=== PATIENT | male | born 1955 | race Caucasian/White ===

== ENCOUNTER → 2016-12-16 | Outpatient (REF) | payer MEDICARE, OTHER ==
[~2016-12-16] MED LIST: /AMLO25TA PO; /OMEP10CA; ADV250INH INH; ALBU17IN INH; ALBU20IN INH; ASPI81TA45; CEFT500T; CEFT500T PO; IBUP200T2 PO; IBUP600T; LISI20TA5; LISI5TAB PO; OMEP20CA3 PO; ONETAB11 PO; PRED1TAB32 PO; PRIL20CA; SIMV10TA2 PO; WELL100T; WELL100T PO; ZOCO10TA PO; ZOLO100T; ZOLO100T PO
== END ==
LOC: M LAB REF 13:18
PROVIDERS: ATTEND Internal Medicine
DX: K70.0 Alcoholic fatty liver (principal)

== ENCOUNTER → 2017-05-31 | Outpatient (CLI) | payer MEDICARE ==
--- NOTE | 2017-05-31 13:26 | REP ---
Clinical: COPD . Comparison: 11/27/2015 . Technique: PA and lateral. Findings: The mediastinum and cardiac silhouette are normal. The lung ordaz demonstrate chronic stable changes without acute consolidation, effusion, or pneumothorax. The skeletal structures are intact and normal. Impression: 1. No acute cardiopulmonary process. Signed by Clarence Foster MD 05/31/2017 01:18 P
== END ==
LOC: M SMT 13:04
PROVIDERS: ATTEND Internal Medicine Pulmonary Disease
DX: J44.9 Chronic obstructive pulmonary disease, unspecified (principal)

== ENCOUNTER → 2017-07-08 | Outpatient (REF) | payer MEDICARE ==
[2017-07-08 12:59] LABS: INR 0.94; PROTHROMBIN TIME 12.7 SECONDS (12.4-14.5)
== END ==
LOC: M LAB REF 12:23
DX: K70.0 Alcoholic fatty liver (principal)
CPT/HCPCS: 85610

== ENCOUNTER 2018-06-26 07:51 | Day surgery (SDC) | payer MEDICARE ==
[~2018-06-26] VITALS: Ht 177.8 cm; Wt 110.2 kg
[~2018-06-26 07:51] MED LIST changes: +ALBU17IN2 INH; +AMLO5TAB6 PO; +BUPR150T3 PO; +LOSARTAN-HCTZ PO; +MULTCAP PO; +SERT-138 PO
[2018-06-26] MEDS ORDERED: NS 1,000 ML IV ONE (08:00)
[2018-06-26] MEDS ORDERED: PROPOFOL 200 MG/20 ML VIAL As Ordered ONE (08:14)
[2018-06-26] MEDS ORDERED: LIDOCAINE 2% INJ 100 MG/5 ML SDV (FOR ANES.) As Ordered ONE (08:15)
[2018-06-26] MEDS ORDERED: fentaNYL 100 MCG/2 ML INJECTION (J3010) As Ordered ONE (08:49)
[2018-06-26] MEDS ORDERED: GLYCOPYRROLATE INJ 0.2 MG/ML 2 ML VIAL As Ordered ONE (08:51)
[2018-06-26] MEDS ORDERED: ALBUTEROL SULFATE 2.5 MG/0.5 ML INH NEB SOLN INH ONE (09:00)
--- NOTE | 2018-06-26 09:22 | ROOR ---
Patient Name: Scott Hill Procedure Date: 06/26/2018 9:03 AM Date of : 1955 Age: 62 Room: [facility] Gender: Male Note Status: Finalized Procedure: Upper Endoscopy + Biopsies Indications: Heartburn, Abrams's esophagus, Follow-up of Abrams's esophagus Providers: Jared Gutiérrez MD Referring MD: Aida Merchant DO Requesting Provider: Medicines: Monitored Anesthesia Care Complications: No immediate complications. Procedure: Pre-Anesthesia Assessment: - The heart rate, respiratory rate, oxygen saturations, blood pressure, adequacy of pulmonary ventilation, and response to care were monitored throughout the procedure. The Endoscope was introduced through the mouth, and advanced to the second part of duodenum. The upper GI endoscopy was accomplished without difficulty. The patient tolerated the procedure well. Findings: The Z-line was irregular and was found 30 cm from the incisors. Multiple biopsies were obtained with cold forceps for evaluation to rule out Abrams's Esophagus randomly at the gastroesophageal junction. A medium-sized hiatal hernia was present. No other significant abnormalities were identified in a careful examination of the stomach. The exam of the duodenum was otherwise normal. Impression: - Z-line irregular, 30 cm from the incisors. - Medium-sized hiatal hernia. - Multiple biopsies were obtained at the gastroesophageal junction. - The examination was otherwise normal. Recommendation: - Patient has a contact number available for emergencies. The signs and symptoms of potential delayed complications were discussed with the patient. Return to normal activities tomorrow. Written discharge instructions were provided to the patient. - Resume previous diet. - Discharge patient to home. - Follow an antireflux regimen. - Continue present medications. - Await pathology results. - Telephone GI clinic for pathology results in 1 week. - Return to referring physician. - The findings and recommendations were discussed with the patient's family. Jared Gutiérrez MD Jared Gutiérrez MD 06/26/2018 9:22:27 AM This report has been signed electronically. Number of Addenda: 0 Note Initiated On: 06/26/2018 9:03 AM Estimated Blood Loss: Estimated blood loss: none.
[2018-06-26 09:45] VITALS: BP 127/78
== END 2018-06-26 09:52 | disposition home or self-care (01) ==
LOC: M OPP 07:51
PROVIDERS: ATTEND Internal Medicine Gastroenterology
DX: R12 Heartburn (principal); K22.70 Barrett's esophagus without dysplasia; K22.8 Other specified diseases of esophagus; K44.9 Diaphragmatic hernia without obstruction or gangrene; G47.30 Sleep apnea, unspecified; Z79.899 Other long term (current) drug therapy
CPT/HCPCS: 43239; 88305; J3010

== ENCOUNTER → 2018-10-15 | Outpatient (CLI) | payer MEDICARE ==
[~2018-10-15] MED LIST changes: -/AMLO25TA PO; +NORV2TAB PO
--- NOTE | 2018-10-15 10:11 | REP ---
Chest x-ray: Three views. History: COPD with acute lower respiratory infection. Shortness of breath and cough. Comparison chest x-ray May 31, 2017. Findings: The lungs are somewhat hyperinflated overall as before. The pleural angles are sharp. Heart size is normal. No infiltrate is seen. Pulmonary vasculature is not increased. Impression: No focal infiltrate. Mild hyperinflation. Electronically Signed by Shakeel Casas MD 10/15/2018 09:58 A
== END ==
LOC: M WUC 09:44
PROVIDERS: ATTEND Physician Assistant
DX: J44.0 Chronic obstructive pulmonary disease with (acute) lower respiratory infection (principal)

== ENCOUNTER → 2018-12-27 | Outpatient (CLI) | payer MEDICARE ==
[~2018-12-27] MED LIST changes: +OMEP20CA4 PO
--- NOTE | 2018-12-28 11:45 | REP ---
Whole body PET CT scan for single pulmonary nodule of the left lung: Comparison studies are the low-dose lung screening chest CT dated 12/19/2018. Additionally, there is a comparison PET scan dated 2010. On a low-dose lung screening CT of the chest dated 12/19/2018 there was a 9 mm lung nodule in the left upper lobe. Whole-body scanning is performed from skull base to the upper thighs. Neck and supraclavicular areas: There are no hypermetabolic foci. Chest: The 9 ml left upper lobe lung nodule on the comparison low-dose lung screening CT demonstrates no radio labeling. The the maximal standard uptake value is 0.7. There are no other hypermetabolic foci in the chest. On the comparison PET scan there were three hypermetabolic foci in the chest. These are no longer present on the current study. Abdomen, pelvis and upper thighs: There are no hypermetabolic foci. This is unchanged from the prior PET scan. Impression: There are no hypermetabolic foci. The 9 ml left upper lobe lung nodule demonstrates no radio labeling. The three foci identified in the chest on the prior PET scan are no longer present. The study is performed with 9.34 mCi of F 18 FDG. Electronically Signed by Ney Stephen MD 12/28/2018 11:37 A
== END ==
LOC: M PLARAD 14:37
PROVIDERS: ATTEND Internal Medicine Pulmonary Disease
DX: R91.1 Solitary pulmonary nodule (principal)
CPT/HCPCS: 78815; A9552

== ENCOUNTER → 2019-03-20 | Outpatient (CLI) | payer MEDICARE ==
[~2019-03-20] MED LIST changes: -ALBU17IN2 INH; +PROV108A INH
--- NOTE | 2019-03-20 13:32 | REP ---
REASON: Followup left lung nodule. All priors were reviewed. The latest prior is a low dose screening CT examination of the lungs of 12/19/2018 which showed a new left upper lobe nodule. Exam is limited without the administration of intravenous contrast. The mediastinum and pulmonary leigh are unchanged from the latest prior complete CT examination of the chest of 07/23/2014. No adenopathy has developed. There are no pleural or pericardial effusions. The imaged upper abdomen shows diffusely low density throughout the hepatic parenchyma. The imaged osseous structures show chronic spinal degenerative changes status quo. Evaluation of the lung ordaz again show a left upper lobe nodule and possibly with faint spiculations. The nodule measures approximately 9 mm. There is an incidental tiny calcified granuloma in the lingula. There are curvilinear bibasilar densities mostly pleural based and likely reflecting subsegmental atelectatic changes status quo. These have been stable since the 07/23/2014 exam as well. Scattered reticulonodular densities are again seen throughout the lung ordaz status quo, but improved when compared to 07/23/2014. IMPRESSION: 1. Left upper lobe nodule as described above. According to the revised Fleischner's Society criteria tissue sampling and/or PET CT is recommended. 2. Other chronic changes involving the lung ordaz as described above. 3. There is diffuse fatty infiltration of the liver. Electronically Signed by Omer Hill DO 03/20/2019 02:15 P
== END ==
LOC: M RAD 09:43
PROVIDERS: ATTEND Internal Medicine Pulmonary Disease
DX: R91.1 Solitary pulmonary nodule (principal); R91.8 Other nonspecific abnormal finding of lung field; K76.0 Fatty (change of) liver, not elsewhere classified

== ENCOUNTER → 2019-06-25 | Outpatient (CLI) | payer MEDICARE ==
[~2019-06-25] MED LIST changes: +OMEP1CAP73 PO; -OMEP20CA4 PO; +SIMV10TA21 PO
--- NOTE | 2019-06-25 15:39 | REP ---
CT of the chest without IV contrast for left lung nodule. Followup: Comparison is 03/20/2019. There is a nodule in the left upper lobe on image 22 today measuring 9 x 8 mm. This is unchanged in size from the prior study. There are no other lung nodules or masses. There are no infiltrates or pleural effusions. The mediastinal azygos node measures 15 mm short axis which is enlarged, however, there is a fatty hilus. This is unchanged. There is an enlarged left axillary node measuring 12 mm short axis. This is unchanged. In the absence of IV contrast the study is insensitive for hilar lymphadenopathy. There is curvilinear scarring in the left lower lobe, unchanged. Lung ordaz otherwise clear. The unenhanced thoracic aorta is unremarkable except for calcified atheroma. Cardiac size is normal. There is coronary artery calcified atheroma. This is unchanged. Upper abdomen: There is hepato steatosis, unchanged. There is no adrenal mass. The visualized areas of the pancreas and spleen are unremarkable. Impression: Right upper lobe lung nodule as described, unchanged. Enlarged mediastinal azygos node enlarged left axillary node, unchanged. No other lung nodules. No infiltrates or pleural effusions. Hepato steatosis. Small hiatal hernia. Electronically Signed by Ney Stephen MD 06/25/2019 03:31 P
== END ==
LOC: M RAD 10:46
PROVIDERS: ATTEND Internal Medicine Pulmonary Disease
DX: R91.1 Solitary pulmonary nodule (principal)

== ENCOUNTER → 2019-10-29 | Outpatient (CLI) | payer MEDICARE ==
[~2019-10-29] MED LIST changes: +CAND32TA PO
== END ==
LOC: M LABSMTC 10:53
PROVIDERS: ATTEND Anesthesiology
DX: Z01.818 Encounter for other preprocedural examination (principal); Z11.59 Encounter for screening for other viral diseases

== ENCOUNTER 2019-11-01 12:15 | Day surgery (SDC) | payer MEDICARE ==
[~2019-11-01] VITALS: Ht 180.3 cm; Wt 112.5 kg
[~2019-11-01 12:15] MED LIST changes: +BSS IRR 500ML/OMIDRIA 4ML IRR BAG (OR ONLY) (J1097 PER ML) As Ordered ONE; +CEFUROXIME 1MG/0.1ML INTRACAMERAL INJ As Ordered ONE; +DUOVISC (0.50ML VISCOAT/0.55ML PROVISC) OPHTH KIT As Ordered ONE; +MIDAZOLAM INJ 2MG/2ML VIAL (J2250 PER 1MG) As Ordered ONE; +OFLOXACIN 0.3 % (OCUFLOX) OPTH SOL 5ML OD ONE; +PHENYLEPHRINE 2.5% OPHTH SOL 2ML OD ONE; +POVIDONE-IODINE 5% OPHTH PREP SOL 30ML As Ordered ONE; +PROPARACAINE 0.5% OPHTH SOL 15ML OD ONE; +TROPICAMIDE 1% OPHTH SOLN 2ML OD ONE; +fentaNYL 100 MCG/2 ML INJECTION (J3010) As Ordered ONE
[2019-11-01 15:45] VITALS: BP 164/83
--- NOTE | 2019-11-08 23:50 | RO ---
DATE OF PROCEDURE: 11/01/2019 PREOPERATIVE DIAGNOSIS: 1. Visually significant nuclear sclerotic cataract right eye. POSTOPERATIVE DIAGNOSIS: 1. Visually significant nuclear sclerotic cataract right eye. PROCEDURE: 1. Cataract extraction with use of phacoemulsification and placement of intraocular lens, AU00T0, 20.0 D, right eye. SURGEON: Luis Alfredo Gutiérrez DO PSYCHOLOGY CLINICIAN: None. ANESTHESIA: Local with monitored anesthesia care (MAC), with Omidria (4 mL/500 mL) mixed into irrigation solution. COMPLICATIONS: None. POSTOPERATIVE CONDITION: Stable. INDICATIONS FOR SURGERY: 1. Blurred vision affecting patients activities of daily living. DESCRIPTION OF PROCEDURE: The patient was seen in the preoperative area and properly identified. The correct operative eye was identified and marked. The patient received topical anesthetic, antibiotics, and topical dilating drops. The patient was then transferred to the operating room. The correct side was re-identified, and a time-out was performed. The eye was prepped and draped in a sterile fashion. The eyelids were isolated with Tegaderm tape, and the lids were held open with an adjustable speculum. A 1.0 mm paracentesis incision was made. Intraocular preservative-free Shugarcaine was then injected into the anterior chamber. Viscoelastic was then injected into the anterior chamber through the paracentesis. Using a 2.4 mm sharp-tipped keratome, the anterior chamber was entered via a temporal clear cornea incision. A continuous curvilinear capsulorrhexis was created with Utrata forceps. Hydrodissection was performed with balanced salt solution (BSS) on a blunt cannula until the nucleus was able to rotate freely. The crystalline lens was phacoemulsified and aspirated. Irrigation/aspiration was used to remove the cortical material. Cohesive viscoelastic was placed into the capsular bag to deepen it. The implant was placed into the capsular bag and allowed to unfold. Placement was confirmed by visualizing the anterior capsulorrhexis. Irrigation/aspiration was used to remove the viscoelastic. The clear corneal incision was hydrated with BSS on a blunt cannula. The lens was well positioned. The incisions were then tested for leaks and found to be negative. Cefuroxime was injected into the anterior chamber. The eye was then palpated for appropriate pressure and adjusted accordingly with BSS. The eyelid speculum was then carefully removed. A shield was placed over the eye. The patient tolerated the procedure well and was discharged to the recovery unit in a stable condition.
== END 2019-11-01 15:50 | disposition home or self-care (01) ==
LOC: M SDC 12:15
PROVIDERS: ATTEND Ophthalmology
DX: H25.11 Age-related nuclear cataract, right eye (principal); I10 Essential (primary) hypertension; E78.5 Hyperlipidemia, unspecified; K21.9 Gastro-esophageal reflux disease without esophagitis; J44.9 Chronic obstructive pulmonary disease, unspecified; F32.9 Major depressive disorder, single episode, unspecified; G47.30 Sleep apnea, unspecified; F17.218 Nicotine dependence, cigarettes, with other nicotine-induced disorders; Z79.899 Other long term (current) drug therapy
CPT/HCPCS: 66984; J1097; J2250; J3010; V2632

== ENCOUNTER → 2020-01-09 | Outpatient (CLI) | payer MEDICARE ==
[~2020-01-09] MED LIST changes: +AMLO1TAB24 PO; -AMLO5TAB6 PO; -BSS IRR 500ML/OMIDRIA 4ML IRR BAG (OR ONLY) (J1097 PER ML) As Ordered ONE; -CEFUROXIME 1MG/0.1ML INTRACAMERAL INJ As Ordered ONE; -DUOVISC (0.50ML VISCOAT/0.55ML PROVISC) OPHTH KIT As Ordered ONE; -MIDAZOLAM INJ 2MG/2ML VIAL (J2250 PER 1MG) As Ordered ONE; -OFLOXACIN 0.3 % (OCUFLOX) OPTH SOL 5ML OD ONE; -PHENYLEPHRINE 2.5% OPHTH SOL 2ML OD ONE; -POVIDONE-IODINE 5% OPHTH PREP SOL 30ML As Ordered ONE; -PROPARACAINE 0.5% OPHTH SOL 15ML OD ONE; -TROPICAMIDE 1% OPHTH SOLN 2ML OD ONE; -fentaNYL 100 MCG/2 ML INJECTION (J3010) As Ordered ONE
--- NOTE | 2020-02-29 13:43 | REP ---
CT OF THE CHEST WITH INTRAVENOUS (IV) CONTRAST Delay in reporting results from malfunction of the hospital computer system because of malware attack. COMPARISON: 06/25/2019 and 03/20/2019. Study is performed for followup of a known left upper lobe lung nodule. FINDINGS: The left upper lobe lung nodule is again identified today on image 18 and measures 6.6 mm. This measured approximately 8 x 9 mm on the comparison studies. There is no significant interval size increase and the lesion appears slightly decreased in size today. There are no other lung nodules. There are no acute infiltrates or pleural effusions. There is chronic curvilinear scarring in the left lower lobe. This is unchanged. There is an enlarged left axillary node measuring 11 mm in diameter. This measured 12 mm previously. There is no significant size increase and this nodule may be slightly decreased in size today. There is no other axillary lymph node enlargement. There is no mediastinal lymph node enlargement. In the absence of IV contrast, the study is insensitive for hilar lymph node enlargement. The unenhanced thoracic aorta contains occasional calcified atheroma, but is otherwise unremarkable. Cardiac size is normal. There is no pericardial effusion. UPPER ABDOMEN: There is diffuse hepatosteatosis, unchanged, in the visualized portion of the liver. The visualized portions of the gallbladder, pancreas, and spleen are unremarkable. There is no adrenal nodule or mass. This is unchanged. IMPRESSION: The known left upper lobe nodule shows no interval size increase and may be slightly decreased in size. The known left axillary lymph node shows no interval size increase and may be slightly decreased in size. The chronic scarring in the left lower lobe is unchanged. There are no new lung nodules or masses. There are no acute cardiopulmonary findings. There was no interval change from the prior studies. MTDD
== END ==
LOC: M RAD 17:00
PROVIDERS: ATTEND Internal Medicine Pulmonary Disease
DX: R91.1 Solitary pulmonary nodule (principal); K76.89 Other specified diseases of liver

== ENCOUNTER → 2020-05-13 | Outpatient (CLI) | payer SELFPAY | LOC: M LABSMTC 16:56 | PROVIDERS: ATTEND Pediatrics | DX: Z11.59 Encounter for screening for other viral diseases (principal) ==

== ENCOUNTER → 2020-07-22 | Outpatient (CLI) | payer MEDICARE ==
[~2020-07-22] MED LIST changes: -BUPR150T3 PO; +BUPR150T4 PO
--- NOTE | 2020-07-23 07:12 | REP ---
INDICATION: SOLITARY PULMONARY NODULE COMPARISON: 01/09/2020, 03/20/2019 TECHNIQUE: Axial noncontrast images from the thoracic inlet to the upper abdomen with coronal and sagittal reformations. This CT examination was performed using the following dose reduction techniques: Automated exposure control, adjustment of mA and/or kv according to the patient's size, and use of iterative reconstruction technique. FINDINGS: 7 mm stable noncalcified nodule in the left upper lobe (series 201; image 22) remains essentially unchanged compared through 03/20/2019. Mild age-related chronic interstitial changes are again noted. No consolidation, new significant nodule or mass lesion. No effusion. No pneumothorax. Tracheobronchial tree is patent. No significant adenopathy. Moderate atherosclerotic changes to the thoracic aorta and coronary arteries noted without aortic aneurysm or cardiomegaly. No pericardial effusion. Limited upper abdomen demonstrates normal bilateral adrenal glands and diffuse hepatosteatosis. Small hiatal hernia noted. Musculoskeletal structures are intact. IMPRESSION: Stable 7 mm noncalcified nodule in the left upper lobe unchanged through 03/20/2019. No new mediastinal or pleuroparenchymal process appreciated. <Electronically signed by Clarence Foster > 07/23/20 [id number]
== END ==
LOC: M RAD 07:10
PROVIDERS: ATTEND Internal Medicine Pulmonary Disease
DX: R91.1 Solitary pulmonary nodule (principal); I25.10 Atherosclerotic heart disease of native coronary artery without angina pectoris; I70.0 Atherosclerosis of aorta; K76.0 Fatty (change of) liver, not elsewhere classified; K44.9 Diaphragmatic hernia without obstruction or gangrene

== ENCOUNTER 2020-11-20 17:54 | Emergency (ER) | payer MEDICARE ==
[~2020-11-20] VITALS: Ht 180.3 cm; Wt 111.4 kg
[~2020-11-20 17:54] MED LIST changes: +BUPR150T12 PO; -BUPR150T4 PO
[2020-11-20] MEDS ORDERED: FLUT1BLS5 (18:04)
[2020-11-20] MEDS ORDERED: NS 1,000 ML IV ONE (18:15)
[2020-11-20 18:45] LABS: BASO % 0.4 % (0.0-1.0); EOS # 0.1 10^3/uL (0.0-0.5); EOS % 0.6 % (0.0-3.0); HEMATOCRIT 39.4 % (42.0-52.0); HEMOGLOBIN 12.8 g/dl (13.5-17.5); LYMPH # 1.3 10^3/uL (1.5-5.0); LYMPH % 15.5 % (24.0-44.0); MEAN CORPUSCULAR HEMOGLOBIN 29.3 pg (27.0-33.0); MEAN CORPUSCULAR HGB CONC 32.5 g/dl (32.0-36.5); MEAN CORPUSCULAR VOLUME 90.2 fl (80.0-96.0); MONO # 0.6 10^3/uL (0.0-0.8); MONO % 6.7 % (2.0-8.0); NEUTROPHILS # 6.4 10^3/uL (1.5-8.5); NEUTROPHILS % 75.4 % (36.0-66.0); PLATELET COUNT, AUTOMATED 265 10^3/uL (150-450); RED BLOOD COUNT 4.37 10^6/uL (4.30-6.10); WHITE BLOOD COUNT 8.5 10^3/uL (4.0-10.0)
[2020-11-20 18:56] LABS: PROTHROMBIN TIME 13.4 SECONDS (12.5-14.3)
--- NOTE | 2020-11-20 19:00 | REPVR ---
PROCEDURE INFORMATION: Exam: CT Cervical Spine Without Contrast Exam date and time: 11/20/2020 6:30 PM Age: 65 years old Clinical indication: Injury or trauma; Fall; Blunt trauma TECHNIQUE: Imaging protocol: Computed tomography images of the cervical spine without contrast. Radiation optimization: All CT scans at this facility use at least one of these dose optimization techniques: automated exposure control; mA and/or kV adjustment per patient size (includes targeted exams where dose is matched to clinical indication); or iterative reconstruction. COMPARISON: PT PET/CT Skull/mid thigh 12/27/2018 4:03 PM FINDINGS: Bones/joints: There is mild reversal of the normal cervical lordosis. No acute fracture is identified. Discs/Spinal canal/Neural foramina: Moderate/severe degenerative changes of the cervical spine are present. There is no severe spinal canal stenosis. Multilevel neural foraminal narrowing from uncinate spurring and facet arthropathy is noted. Lungs: Lung apices are normal. Vasculature: Atherosclerotic calcifications are present at the carotid bifurcations. Soft tissues: Unremarkable. IMPRESSION: 1. No acute abnormality. 2. Chronic findings as discussed above. Electronically signed by: Chi Romo On 11/20/2020 18:59:56 PM
--- NOTE | 2020-11-20 19:01 | REPVR ---
PROCEDURE INFORMATION: Exam: CT Head Without Contrast Exam date and time: 11/20/2020 6:30 PM Age: 65 years old Clinical indication: Injury or trauma; Fall; Blunt trauma (contusions or hematomas) TECHNIQUE: Imaging protocol: Computed tomography of the head without contrast. Radiation optimization: All CT scans at this facility use at least one of these dose optimization techniques: automated exposure control; mA and/or kV adjustment per patient size (includes targeted exams where dose is matched to clinical indication); or iterative reconstruction. COMPARISON: PT PET/CT Skull/mid thigh 12/27/2018 4:03 PM FINDINGS: Brain: No acute intracranial hemorrhage, cerebral edema, or midline shift. Cerebral ventricles: No hydrocephalus. Paranasal sinuses: There is no acute sinusitis. Mastoid air cells: Visualized mastoid air cells are well aerated. Orbital cavity: Unremarkable as visualized. Bones/joints: No acute fracture. Soft tissues: Unremarkable. IMPRESSION: No acute intracranial abnormality. Electronically signed by: Chi Romo On 11/20/2020 19:00:59 PM
[2020-11-20 19:07] LABS: ALT/SGPT 98 U/L (12-78); AMYLASE 33 U/L (25-115); BILIRUBIN,DIRECT 0.1 MG/DL (0.0-0.2); BILIRUBIN,TOTAL 0.4 MG/DL (0.2-1.0); BLOOD UREA NITROGEN 17 MG/DL (7-18); CARBON DIOXIDE LEVEL 24 MEQ/L (21-32); CHLORIDE LEVEL 106 MEQ/L (98-107); CK-MB VALUE MASS 12.5 NG/ML (<3.6); CPK CREATINE PHOSPHOKINASE 625 U/L (39-308); CREATININE FOR GFR 0.71 MG/DL (0.70-1.30); GLOMERULAR FILTRATION RATE > 60.0 (>49); GLUCOSE, FASTING 82 MG/DL (70-100); LIPASE 109 U/L (73-393); POTASSIUM SERUM 3.9 MEQ/L (3.5-5.1); SODIUM LEVEL 138 MEQ/L (136-145); TOTAL PROTEIN 7.7 GM/DL (6.4-8.2); TROPONIN I < 0.02 NG/ML (< 0.10)
[2020-11-20 19:16] LABS: AMPHETAMINES LEVEL URINE NEGATIVE (NEGATIVE); BARBITURATES URINE NEGATIVE (NEGATIVE); BENZODIAZEPINES URINE NEGATIVE (NEGATIVE); CANNABINOIDS URINE NEGATIVE (NEGATIVE); COCAINE METABOLITE URINE NEGATIVE (NEGATIVE); METHADONE URINE NEGATIVE (NEGATIVE); OPIATES URINE NEGATIVE (NEGATIVE); PHENCYCLIDINE URINE NEGATIVE (NEGATIVE)
[2020-11-20] MEDS ORDERED: MORPHINE 4 MG/ML 1ML VIAL/SYRINGE (J2270) IV ONE (21:00)
--- NOTE | 2020-11-20 21:51 | ECGEPIP ---
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
--- NOTE | 2020-11-20 21:53 | REPVR ---
PROCEDURE INFORMATION: Exam: XR Chest Exam date and time: 11/20/2020 8:08 PM Age: 65 years old Clinical indication: Injury or trauma; Fall; Swelling (edema) TECHNIQUE: Imaging protocol: XR of the chest. Views: 1 view. COMPARISON: CT Chest without contrast 07/22/2020 7:27 AM FINDINGS: Lungs: Lungs are hyperinflated. No consolidation is apparent. Pleural spaces: No right pleural effusion. Mild blunting of left costophrenic sulcus which could be due to small amount of pleural fluid versus pleuroparenchymal scarring. No pneumothorax. Heart/Mediastinum: Borderline cardiomegaly. Bones/joints: No acute fractures identified however the ribs are not all well evaluated. IMPRESSION: No acute findings. Electronically signed by: Nalini Gibson On 11/20/2020 21:52:53 PM
--- NOTE | 2020-11-20 21:55 | REPVR ---
PROCEDURE INFORMATION: Exam: XR Right Ankle Exam date and time: 11/20/2020 8:08 PM Age: 65 years old Clinical indication: Pain; Ankle; Right; Additional info: Trauma TECHNIQUE: Imaging protocol: XR Right ankle. Views: 3 or more views. COMPARISON: No relevant prior studies available. FINDINGS: Bones/joints: Prominent soft tissue swelling over both the medial and lateral malleoli. No acute fracture or dislocation at the ankle. Degenerative spurring dorsum of the foot. Minimal plantar calcaneal spur. Soft tissues: Marked soft tissue swelling. IMPRESSION: Marked soft tissue swelling without ankle fracture identified. Electronically signed by: Nalini Gibson On 11/20/2020 21:54:52 PM
[2020-11-20 22:39] VITALS: BP 140/71
== END 2020-11-20 22:48 | disposition home or self-care (01) ==
LOC: M ED 17:54
DX: S93.401A Sprain of unspecified ligament of right ankle, initial encounter (principal); W13.2XXA Fall from, out of or through roof, initial encounter; Y92.009 Unspecified place in unspecified non-institutional (private) residence as the place of occurrence of the external cause; Y93.9 Activity, unspecified; Y99.9 Unspecified external cause status; F17.200 Nicotine dependence, unspecified, uncomplicated; F10.10 Alcohol abuse, uncomplicated; M50.30 Other cervical disc degeneration, unspecified cervical region; Z79.899 Other long term (current) drug therapy
CPT/HCPCS: 36415; 70450; 71045; 72125; 73610; 80048; 80076; 80307; 81001; 82077; 82150; 82550; 82553; 83605; 83690; 84484; 85025; 85610; 85730; 86850; 86900; 86901; 93005; 93041; 94760; 96361; 96374; 99285; J2270

== ENCOUNTER → 2021-01-20 | Outpatient (CLI) | payer MEDICARE ==
[~2021-01-20] MED LIST changes: +FLUT1BLS5
--- NOTE | 2021-01-20 09:56 | REP ---
INDICATION: SOLITARY PULMONARY NODULE. COMPARISON: None. TECHNIQUE: CT chest performed without the use of intravenous contrast. Sagittal and coronal reconstruction images are performed. FINDINGS: Lungs: There is no acute infiltrate. There are stable interstitial fibrotic changes scattered bilaterally. There is a stable 7 mm nodular opacity in the left upper lobe on image 21. A tiny calcified granuloma is again seen more inferiorly in the left upper lobe. Mediastinum: No gross adenopathy. Nini: No gross adenopathy. Axilla: No gross adenopathy. Pleura: No effusion. Heart: Not enlarged. Thoracic aorta: No aneurysm. Upper abdominal structures: Grossly unremarkable. There is a small hiatal hernia. Visualized osseous structures: There are mild degenerative changes of the spine without acute compression fracture. IMPRESSION: Stable exam as discussed in detail above. <Electronically signed by Ney Parish > 01/20/21 0914
== END ==
LOC: M RAD 08:52
PROVIDERS: ATTEND Internal Medicine Pulmonary Disease
DX: R91.1 Solitary pulmonary nodule (principal)

== ENCOUNTER → 2021-07-29 | Outpatient (REF) | payer MEDICARE | LOC: M LAB REF 16:23 | PROVIDERS: ATTEND Internal Medicine | DX: K70.0 Alcoholic fatty liver (principal) ==

== ENCOUNTER 2021-08-09 12:16 | Emergency (ER) | payer MEDICARE ==
[~2021-08-09 12:16] MED LIST changes: +FOLIC ACID 1 MG TAB PO SCH; +MULTIVITAMINS/MINERALS THERAP 1 TAB PO SCH
[2021-08-09] MEDS ORDERED: HYDR-3363 (12:32)
[2021-08-09] MEDS ORDERED: BUPR300T92 (12:32)
[2021-08-09] MEDS ORDERED: FISH1000 PO (12:32)
[2021-08-09] MEDS ORDERED: LORazepam 2 MG TAB PO PRN (12:45)
[2021-08-09] MEDS ORDERED: THIAMINE 100 MG TAB PO SCH ×2 (12:46→21:00)
[2021-08-09 14:08] LABS: HEMATOCRIT 42.6 % (42.0-52.0); HEMOGLOBIN 13.8 g/dl (13.5-17.5); MEAN CORPUSCULAR HEMOGLOBIN 28.9 pg (27.0-33.0); MEAN CORPUSCULAR HGB CONC 32.4 g/dl (32.0-36.5); MEAN CORPUSCULAR VOLUME 89.3 fl (80.0-96.0); PLATELET COUNT, AUTOMATED 270 10^3/uL (150-450); RED BLOOD COUNT 4.77 10^6/uL (4.30-6.10); WHITE BLOOD COUNT 8.2 10^3/uL (4.0-10.0)
[2021-08-09 14:43] LABS: ACETAMINOPHEN LEVEL < 2.0 UG/ML (10.0-30.0); ALBUMIN 3.8 GM/DL (3.2-5.2); ALT/SGPT 67 U/L (12-78); BILIRUBIN,DIRECT 0.1 MG/DL (0.0-0.2); BILIRUBIN,TOTAL 0.2 MG/DL (0.2-1.0); BLOOD UREA NITROGEN 17 MG/DL (7-18); CALCIUM LEVEL 9.8 MG/DL (8.8-10.2); CARBON DIOXIDE LEVEL 27 MEQ/L (21-32); CHLORIDE LEVEL 107 MEQ/L (98-107); ETHYL ALCOHOL (ETHANOL) < 0.003 % (0.000-0.010); GLOMERULAR FILTRATION RATE > 60.0 (>49); GLUCOSE, FASTING 121 MG/DL (70-100); POTASSIUM SERUM 3.9 MEQ/L (3.5-5.1); SALICYLATE LEVEL < 1.7 MG/DL (5.0-30.0); SODIUM LEVEL 141 MEQ/L (136-145); TOTAL PROTEIN 7.4 GM/DL (6.4-8.2)
[2021-08-09 14:48] LABS: AMPHETAMINES LEVEL URINE NEGATIVE (NEGATIVE); BARBITURATES URINE NEGATIVE (NEGATIVE); BENZODIAZEPINES URINE NEGATIVE (NEGATIVE); CANNABINOIDS URINE NEGATIVE (NEGATIVE); COCAINE METABOLITE URINE NEGATIVE (NEGATIVE); METHADONE URINE NEGATIVE (NEGATIVE); OPIATES URINE NEGATIVE (NEGATIVE); PHENCYCLIDINE URINE NEGATIVE (NEGATIVE)
[2021-08-09 16:01] VITALS: BP 138/83
[2021-08-10] MEDS ORDERED: FOLIC ACID 1 MG TAB PO SCH (09:00)
[2021-08-10] MEDS ORDERED: MULTIVITAMINS/MINERALS THERAP 1 TAB PO SCH (09:00)
== END 2021-08-09 17:26 | disposition home or self-care (01) ==
LOC: M ED 12:16
DX: F33.9 Major depressive disorder, recurrent, unspecified (principal); F41.9 Anxiety disorder, unspecified; I10 Essential (primary) hypertension; J44.9 Chronic obstructive pulmonary disease, unspecified; E78.9 Disorder of lipoprotein metabolism, unspecified; G47.33 Obstructive sleep apnea (adult) (pediatric); Z99.89 Dependence on other enabling machines and devices; Z79.899 Other long term (current) drug therapy; F17.210 Nicotine dependence, cigarettes, uncomplicated

== ENCOUNTER 2021-08-15 14:09 | Emergency (ER) | payer MEDICARE ==
[~2021-08-15] VITALS: Ht 180.3 cm; Wt 102.6 kg
[~2021-08-15 14:09] MED LIST changes: +BUPR300T92 PO; +FISH1000 PO; -FLUT1BLS5; +FLUT1BLS5 INH; -FOLIC ACID 1 MG TAB PO SCH; +HYDR-3363 PO; -MULTIVITAMINS/MINERALS THERAP 1 TAB PO SCH
[2021-08-15 15:46] LABS: HEMATOCRIT 43.1 % (42.0-52.0); HEMOGLOBIN 14.3 g/dl (13.5-17.5); MEAN CORPUSCULAR HEMOGLOBIN 28.8 pg (27.0-33.0); MEAN CORPUSCULAR HGB CONC 33.2 g/dl (32.0-36.5); MEAN CORPUSCULAR VOLUME 86.7 fl (80.0-96.0); PLATELET COUNT, AUTOMATED 262 10^3/uL (150-450); RED BLOOD COUNT 4.97 10^6/uL (4.30-6.10); WHITE BLOOD COUNT 8.8 10^3/uL (4.0-10.0)
[2021-08-15 16:17] LABS: AMPHETAMINES LEVEL URINE NEGATIVE (NEGATIVE); BARBITURATES URINE NEGATIVE (NEGATIVE); BENZODIAZEPINES URINE NEGATIVE (NEGATIVE); CANNABINOIDS URINE NEGATIVE (NEGATIVE); COCAINE METABOLITE URINE NEGATIVE (NEGATIVE); METHADONE URINE NEGATIVE (NEGATIVE); OPIATES URINE NEGATIVE (NEGATIVE); PHENCYCLIDINE URINE NEGATIVE (NEGATIVE)
[2021-08-15 16:20] LABS: ACETAMINOPHEN LEVEL < 2.0 UG/ML (10.0-30.0); ALBUMIN 4.1 GM/DL (3.2-5.2); ALT/SGPT 88 U/L (12-78); BILIRUBIN,DIRECT 0.1 MG/DL (0.0-0.2); BILIRUBIN,TOTAL 0.3 MG/DL (0.2-1.0); BLOOD UREA NITROGEN 14 MG/DL (7-18); CALCIUM LEVEL 9.8 MG/DL (8.8-10.2); CARBON DIOXIDE LEVEL 32 MEQ/L (21-32); CHLORIDE LEVEL 105 MEQ/L (98-107); CREATININE FOR GFR 0.79 MG/DL (0.70-1.30); ETHYL ALCOHOL (ETHANOL) < 0.003 % (0.000-0.010); GLOMERULAR FILTRATION RATE > 60.0 (>49); GLUCOSE, FASTING 88 MG/DL (70-100); SODIUM LEVEL 141 MEQ/L (136-145); TOTAL PROTEIN 7.9 GM/DL (6.4-8.2)
[2021-08-15] MEDS ORDERED: OMEP-173 PO (17:22)
[2021-08-15] MEDS ORDERED: ALPR1TAB3 PO (17:22)
[2021-08-15] MEDS ORDERED: MULTTAB61 PO (17:22)
[2021-08-15] MEDS ORDERED: ZOLO100T PO (17:22)
[2021-08-15] MEDS ORDERED: HOME MED LIST COMPLETE! XX SCH (18:35)
[2021-08-15] MEDS ORDERED: NICOTINE 21MG/24HR 1 EA TRANSDERMAL TD ONE (19:40)
[2021-08-15] MEDS: SALMETEROL DISKUS 50MCG INHALER (SEREVENT) INH SCH (20:00)
[2021-08-15] MEDS: amLODIPine 5 MG TAB PO SCH (20:08)
[2021-08-15] MEDS: FLUTICASONE HFA 220 MCG 12 GM INHALER (FLOVENT) INH SCH (20:16)
[2021-08-16 08:15] VITALS: BP 145/86
[2021-08-16] MEDS: amLODIPine 5 MG TAB PO SCH (08:15)
[2021-08-16 08:23] VITALS: BP 144/86
[2021-08-16] MEDS ORDERED: buPROPion **XL** TABLET 150MG (WELLBUTRIN XL) PO SCH (09:00)
[2021-08-16] MEDS ORDERED: hydroCHLOROthiazide 12.5 MG CAPSULE PO SCH (09:00)
[2021-08-16] MEDS ORDERED: CANDESARTAN 16MG TABLET PO SCH (09:00)
[2021-08-16] MEDS ORDERED: SERTRALINE 100 MG TAB PO SCH (09:00)
[2021-08-16] MEDS ORDERED: MULTIVITAMINS/MINERALS THERAP 1 TAB PO SCH (09:00)
[2021-08-16] MEDS ORDERED: OMEPRAZOLE 20MG CAP PO SCH (09:00)
[2021-08-16] MEDS ORDERED: SIMVASTATIN 10 MG TAB PO ONE (09:00)
[2021-08-16] MEDS: SALMETEROL DISKUS 50MCG INHALER (SEREVENT) INH SCH (12:00)
[2021-08-16] MEDS: FLUTICASONE HFA 220 MCG 12 GM INHALER (FLOVENT) INH SCH (12:30)
[2021-08-16] MEDS ORDERED: LORazepam 2 MG TAB PO STA (14:59)
== END 2021-08-16 16:56 ==
LOC: M ED 14:09
DX: F32.9 Major depressive disorder, single episode, unspecified (principal); I10 Essential (primary) hypertension; J44.9 Chronic obstructive pulmonary disease, unspecified; G47.33 Obstructive sleep apnea (adult) (pediatric); F17.200 Nicotine dependence, unspecified, uncomplicated; Z79.899 Other long term (current) drug therapy

== ENCOUNTER → 2022-01-28 | Outpatient (REF) | payer MEDICARE ==
[~2022-01-28] MED LIST changes: +ALPR1TAB3 PO; -CAND32TA PO; +CAND32TA2 PO; +MULTTAB61 PO; +OMEP-173 PO
== END ==
LOC: M LAB REF 12:00
PROVIDERS: ATTEND Internal Medicine
DX: K70.0 Alcoholic fatty liver (principal)

== ENCOUNTER → 2022-02-25 | Outpatient (CLI) | payer MEDICARE ==
[~2022-02-25] MED LIST changes: +ALBU6.7H6 INH; -PROV108A INH
== END ==
LOC: M RAD 09:50
PROVIDERS: ATTEND Internal Medicine Pulmonary Disease
DX: R91.1 Solitary pulmonary nodule (principal); J84.10 Pulmonary fibrosis, unspecified

== ENCOUNTER → 2022-03-12 | Outpatient (CLI) | payer MEDICARE ==
[~2022-03-12] MED LIST changes: +PROHANCE 279.3MG/ML 15ML VIAL ONE; +PROHANCE 279.3MG/ML 5ML VIAL ONE
== END ==
LOC: M PLAIMG 15:10
PROVIDERS: ATTEND Internal Medicine
DX: R51.9 Headache, unspecified (principal); R90.82 White matter disease, unspecified
CPT/HCPCS: 70553; A9576

== ENCOUNTER 2022-10-19 08:07 | Day surgery (SDC) | payer MEDICARE ==
[~2022-10-19] VITALS: Ht 180.3 cm; Wt 103.2 kg
[~2022-10-19 08:07] MED LIST changes: +ATOR1TAB21 PO; +CEFUROXIME 1MG/0.1ML INTRACAMERAL INJ As Ordered ONE; +CYCLOPENTOLATE 1% OPHTH SOLN 2ML BTL OS SCH; +CYMB60CA4 PO; +DULO1CAP5 PO; +KLON0.5T PO; +LAMO25TA4 PO; +LIDOCAINE 1% SDV 5ML VIAL As Ordered ONE; +OFLOXACIN 0.3 % (OCUFLOX) OPTH SOL 5ML OS SCH; +PHENYLEPHRINE 2.5% OPHTH SOL 2ML OS SCH; -PROHANCE 279.3MG/ML 15ML VIAL ONE; -PROHANCE 279.3MG/ML 5ML VIAL ONE; +PROPARACAINE 0.5% OPHTH SOL 15ML OS ONE; +TROPICAMIDE 1% OPHTH SOLN 15ML OS SCH
[2022-10-19] MEDS ORDERED: CEFUROXIME 1MG/0.1ML INTRACAMERAL INJ As Ordered ONE (10:02)
[2022-10-19] MEDS ORDERED: fentaNYL 100 MCG/2 ML INJECTION As Ordered ONE (10:31)
[2022-10-19] MEDS ORDERED: MIDAZOLAM INJ 2MG/2ML VIAL As Ordered ONE (10:31)
[2022-10-19 10:39] VITALS: BP 164/83
== END 2022-10-19 10:56 | disposition home or self-care (01) ==
LOC: M SDC 08:07
PROVIDERS: ATTEND Ophthalmology
DX: H25.12 Age-related nuclear cataract, left eye (principal); H21.81 Floppy iris syndrome; I10 Essential (primary) hypertension; E78.5 Hyperlipidemia, unspecified; G47.30 Sleep apnea, unspecified; F17.210 Nicotine dependence, cigarettes, uncomplicated; Z79.899 Other long term (current) drug therapy
CPT/HCPCS: 66982; J0697; J2250; J3010; V2632

== ENCOUNTER → 2023-04-08 | Outpatient (CLI) | payer MEDICARE ==
[~2023-04-08] MED LIST changes: -CEFUROXIME 1MG/0.1ML INTRACAMERAL INJ As Ordered ONE; -CYCLOPENTOLATE 1% OPHTH SOLN 2ML BTL OS SCH; -LIDOCAINE 1% SDV 5ML VIAL As Ordered ONE; -OFLOXACIN 0.3 % (OCUFLOX) OPTH SOL 5ML OS SCH; -PHENYLEPHRINE 2.5% OPHTH SOL 2ML OS SCH; -PROPARACAINE 0.5% OPHTH SOL 15ML OS ONE; -TROPICAMIDE 1% OPHTH SOLN 15ML OS SCH
== END ==
LOC: M RAD 08:36
PROVIDERS: ATTEND Internal Medicine Pulmonary Disease
DX: Z12.2 Encounter for screening for malignant neoplasm of respiratory organs (principal); F17.218 Nicotine dependence, cigarettes, with other nicotine-induced disorders; J44.9 Chronic obstructive pulmonary disease, unspecified; J84.10 Pulmonary fibrosis, unspecified

== ENCOUNTER 2023-07-20 08:28 | Inpatient (IN) | payer MEDICARE ==
[~2023-07-20] VITALS: Ht 180.3 cm; Wt 100.2 kg
[~2023-07-20 08:28] MED LIST changes: -KLON0.5T PO; +KLON0.5T8 PO
[2023-07-20 10:18] LABS: RSV AMPLIFICATION NEGATIVE (NEGATIVE)
[2023-07-20 10:38] LABS: BASO % 0.2 % (0.0-1.0); EOS % 0.2 % (0.0-3.0); HEMATOCRIT 33.2 % (42.0-52.0); HEMOGLOBIN 11.8 g/dl (13.5-17.5); LYMPH # 0.8 10^3/uL (1.5-5.0); LYMPH % 6.6 % (24.0-44.0); MEAN CORPUSCULAR HEMOGLOBIN 29.6 pg (27.0-33.0); MEAN CORPUSCULAR HGB CONC 35.5 g/dl (32.0-36.5); MEAN CORPUSCULAR VOLUME 83.4 fl (80.0-96.0); MONO # 1.1 10^3/uL (0.0-0.8); MONO % 9.4 % (2.0-8.0); NEUTROPHILS # 9.6 10^3/uL (1.5-8.5); NEUTROPHILS % 82.9 % (36.0-66.0); PLATELET COUNT, AUTOMATED 278 10^3/uL (150-450); RED BLOOD COUNT 3.98 10^6/uL (4.30-6.10); WHITE BLOOD COUNT 11.6 10^3/uL (4.0-10.0)
[2023-07-20 11:08] LABS: ALBUMIN 3.2 G/DL (3.2-5.2); ALKALINE PHOSPHATASE 108 U/L (46-116); ALT/SGPT 48 U/L (7.0-40); AST/SGOT 24 U/L (<34); BILIRUBIN,DIRECT 0.3 MG/DL (<0.4); BILIRUBIN,TOTAL 0.6 MG/DL (0.3-1.2); BLOOD UREA NITROGEN 14 MG/DL (9-23); CALCIUM LEVEL 8.6 MG/DL (8.3-10.6); CARBON DIOXIDE LEVEL 28 MMOL/L (20-31); CHLORIDE LEVEL 88 MMOL/L (98-107); GLOMERULAR FILTRATION RATE > 60.0 (>49); GLUCOSE, FASTING 103 MG/DL (74-106); POTASSIUM SERUM 3.6 MMOL/L (3.5-5.1); SODIUM LEVEL 121 MMOL/L (136-145); TOTAL PROTEIN 6.4 G/DL (5.7-8.2)
[2023-07-20 11:10] LABS: FREE T4 1.13 NG/DL (0.89-1.76); THYROID STIMULATING HORMONE 0.654 uIU/ML (0.55-4.78)
[2023-07-20] MEDS ORDERED: ALBU8.5H INH (12:43)
[2023-07-20] MEDS ORDERED: PRED10TA2 PO (12:43)
[2023-07-20] MEDS ORDERED: HOME MED LIST COMPLETE! XX SCH (12:45)
[2023-07-20] MEDS: cefTRIAXone SOD 1 GM in D5W MINI-BAG PLUS 50 ML IV ONE (13:44)
[2023-07-20] MEDS: AZITHROMYCIN 250MG TABLET PO ONE (13:44)
[2023-07-20 14:23] LABS: CREATININE,RANDOM URINE 142.8 MG/DL
[2023-07-20] MEDS ORDERED: MAALOX 30 ML SUSP *UDC PO PRN (14:25)
[2023-07-20] MEDS ORDERED: IPRATROPIUM 0.5MG/ALBUTEROL 2.5MG INH SOL UD 3ML (DUONEB) NEB PRN (14:30)
[2023-07-20] MEDS: ACETAMINOPHEN TAB 650MG DOSE (2X325MG) PO PRN (15:09)
[2023-07-20] MEDS: BENZONATATE 100MG CAPSULE PO SCH (15:10)
[2023-07-20 15:40] LABS: BLOOD UREA NITROGEN 13 MG/DL (9-23); CALCIUM LEVEL 8.2 MG/DL (8.3-10.6); CARBON DIOXIDE LEVEL 28 MMOL/L (20-31); CHLORIDE LEVEL 86 MMOL/L (98-107); CREATININE FOR GFR 0.47 MG/DL (0.70-1.30); GLOMERULAR FILTRATION RATE > 60.0 (>49); GLUCOSE, FASTING 88 MG/DL (74-106); POTASSIUM SERUM 3.6 MMOL/L (3.5-5.1); SODIUM LEVEL 120 MMOL/L (136-145)
[2023-07-20] MEDS: FOLIC ACID 1MG TAB PO SCH (15:51)
[2023-07-20] MEDS: THIAMINE 100 MG TAB PO SCH (15:52)
[2023-07-20] MEDS: MULTIVITAMINS/MINERALS THERAP 1 TAB PO SCH (15:52)
[2023-07-20 17:43] LABS: PROCALCITONIN <0.04 ng/ml
[2023-07-20 21:07] LABS: BLOOD UREA NITROGEN 11 MG/DL (9-23); CALCIUM LEVEL 8.4 MG/DL (8.3-10.6); CARBON DIOXIDE LEVEL 28 MMOL/L (20-31); CHLORIDE LEVEL 90 MMOL/L (98-107); CREATININE FOR GFR 0.48 MG/DL (0.70-1.30); GLOMERULAR FILTRATION RATE > 60.0 (>49); GLUCOSE, FASTING 76 MG/DL (74-106); POTASSIUM SERUM 3.6 MMOL/L (3.5-5.1); SODIUM LEVEL 122 MMOL/L (136-145)
[2023-07-21] MEDS: DULoxetine 30MG CAPSULE (CYMBALTA) PO SCH (00:43)
[2023-07-21] MEDS: lamoTRIgine 25MG TAB PO SCH (00:43)
[2023-07-21] MEDS: amLODIPine 5 MG TAB PO SCH ×2 (00:44→09:00)
[2023-07-21] MEDS: POTASSIUM CHLORIDE 10MEQ SR TABLET PO ONE (00:45)
[2023-07-21] MEDS: FLUTICASONE PROP 0.05% NASAL SPRAY 16 GM (FLONASE) NARES SCH (00:45)
[2023-07-21] MEDS: TOLVAPTAN 7.5 MG HALF-TAB PO ONE (00:45)
[2023-07-21] MEDS: ATORVASTATIN 20 MG TAB PO SCH (00:46)
[2023-07-21 03:14] LABS: BLOOD UREA NITROGEN 9 MG/DL (9-23); CALCIUM LEVEL 8.7 MG/DL (8.3-10.6); CARBON DIOXIDE LEVEL 29 MMOL/L (20-31); CHLORIDE LEVEL 90 MMOL/L (98-107); CREATININE FOR GFR 0.48 MG/DL (0.70-1.30); GLOMERULAR FILTRATION RATE > 60.0 (>49); GLUCOSE, FASTING 85 MG/DL (74-106); POTASSIUM SERUM 3.7 MMOL/L (3.5-5.1); SODIUM LEVEL 125 MMOL/L (136-145)
[2023-07-21 06:21] LABS: MAGNESIUM LEVEL 1.8 MG/DL (1.8-2.4)
[2023-07-21 06:55] LABS: BLOOD UREA NITROGEN 9 MG/DL (9-23); CALCIUM LEVEL 9.1 MG/DL (8.3-10.6); CARBON DIOXIDE LEVEL 27 MMOL/L (20-31); CHLORIDE LEVEL 92 MMOL/L (98-107); CREATININE FOR GFR 0.55 MG/DL (0.70-1.30); GLOMERULAR FILTRATION RATE > 60.0 (>49); GLUCOSE, FASTING 94 MG/DL (74-106); SODIUM LEVEL 127 MMOL/L (136-145)
[2023-07-21] MEDS: OMEPRAZOLE 20MG CAP PO SCH (08:18)
[2023-07-21] MEDS: buPROPion **XL** TABLET 150MG (WELLBUTRIN XL) PO SCH (08:18)
[2023-07-21] MEDS: ENOXAPARIN 40MG/0.4ML SYRINGE (J1650 PER 10MG) SC SCH (08:19)
[2023-07-21] MEDS: AZITHROMYCIN 250MG TABLET PO SCH (08:19)
[2023-07-21] MEDS ORDERED: METOPROLOL SUCC *XL* 12.5MG PER 1/2 TAB (TopROL *XL*) PO SCH (09:00)
[2023-07-21] MEDS ORDERED: PANTOPRAZOLE 40MG VIAL IV SCH (09:00)
[2023-07-21 09:28] LABS: BLOOD UREA NITROGEN 11 MG/DL (9-23); CALCIUM LEVEL 8.8 MG/DL (8.3-10.6); CARBON DIOXIDE LEVEL 27 MMOL/L (20-31); CHLORIDE LEVEL 95 MMOL/L (98-107); CREATININE FOR GFR 0.58 MG/DL (0.70-1.30); GLOMERULAR FILTRATION RATE > 60.0 (>49); GLUCOSE, FASTING 130 MG/DL (74-106); POTASSIUM SERUM 3.8 MMOL/L (3.5-5.1); SODIUM LEVEL 130 MMOL/L (136-145)
[2023-07-21 10:15] VITALS: BP 129/84; TEMP 96.8; O2SAT 90
[2023-07-21 14:00] VITALS: BP 128/85; TEMP 97.3; O2SAT 93
[2023-07-21] MEDS: cefTRIAXone SOD 2 GM in D5W MINI-BAG PLUS 50 ML IV SCH (14:27)
[2023-07-21 14:54] VITALS: O2SAT 85
[2023-07-21 15:11] VITALS: O2SAT 90
[2023-07-21 15:39] LABS: BLOOD UREA NITROGEN 16 MG/DL (9-23); CALCIUM LEVEL 8.7 MG/DL (8.3-10.6); CARBON DIOXIDE LEVEL 30 MMOL/L (20-31); CHLORIDE LEVEL 98 MMOL/L (98-107); CREATININE FOR GFR 0.78 MG/DL (0.70-1.30); GLOMERULAR FILTRATION RATE > 60.0 (>49); GLUCOSE, FASTING 130 MG/DL (74-106); POTASSIUM SERUM 3.5 MMOL/L (3.5-5.1); SODIUM LEVEL 132 MMOL/L (136-145)
[2023-07-21 19:12] VITALS: O2SAT 86
[2023-07-21 20:00] VITALS: BP 109/66; TEMP 98.1; O2SAT 91
[2023-07-22] VITALS (11 sets, daily range): BP systolic 123–152; BP diastolic 75–93; TEMP 97.2–98.2; O2SAT 85–94
[2023-07-22] MEDS: ALBUTEROL 90 MCG/ACT 8GM HFA INHALER INH PRN (00:28)
[2023-07-22 03:00] LABS: BLOOD UREA NITROGEN 22 MG/DL (9-23); CARBON DIOXIDE LEVEL 29 MMOL/L (20-31); CHLORIDE LEVEL 97 MMOL/L (98-107); CREATININE FOR GFR 0.66 MG/DL (0.70-1.30); GLOMERULAR FILTRATION RATE > 60.0 (>49); GLUCOSE, FASTING 149 MG/DL (74-106); POTASSIUM SERUM 3.7 MMOL/L (3.5-5.1); SODIUM LEVEL 132 MMOL/L (136-145)
[2023-07-22 06:12] LABS: BASO # 0.1 10^3/uL (0.0-0.2); BASO % 0.9 % (0.0-1.0); EOS # 0.1 10^3/uL (0.0-0.5); EOS % 0.6 % (0.0-3.0); HEMATOCRIT 36.8 % (42.0-52.0); HEMOGLOBIN 12.4 g/dl (13.5-17.5); LYMPH % 11.6 % (24.0-44.0); MEAN CORPUSCULAR HEMOGLOBIN 29.4 pg (27.0-33.0); MEAN CORPUSCULAR HGB CONC 33.7 g/dl (32.0-36.5); MEAN CORPUSCULAR VOLUME 87.2 fl (80.0-96.0); MONO # 1.2 10^3/uL (0.0-0.8); MONO % 14.3 % (2.0-8.0); NEUTROPHILS # 5.8 10^3/uL (1.5-8.5); NEUTROPHILS % 67.7 % (36.0-66.0); PLATELET COUNT, AUTOMATED 356 10^3/uL (150-450); RED BLOOD COUNT 4.22 10^6/uL (4.30-6.10); WHITE BLOOD COUNT 8.6 10^3/uL (4.0-10.0)
[2023-07-22 06:26] LABS: BLOOD UREA NITROGEN 19 MG/DL (9-23); CARBON DIOXIDE LEVEL 23 MMOL/L (20-31); CHLORIDE LEVEL 102 MMOL/L (98-107); CREATININE FOR GFR 0.53 MG/DL (0.70-1.30); GLOMERULAR FILTRATION RATE > 60.0 (>49); GLUCOSE, FASTING 115 MG/DL (74-106); POTASSIUM SERUM 4.3 MMOL/L (3.5-5.1); SODIUM LEVEL 133 MMOL/L (136-145)
[2023-07-22] MEDS: DOXYCYCLINE HYCLATE 100MG TABLET PO SCH (09:08)
[2023-07-22] MEDS: predniSONE 20 MG TAB PO SCH (17:16)
[2023-07-22] MEDS: BUDESONIDE 0.5 MG/2 ML INHALATION SUSPENSION NEB SCH (20:00)
[2023-07-22] MEDS: IPRATROPIUM 0.5MG/ALBUTEROL 2.5MG INH SOL UD 3ML (DUONEB) NEB SCH (20:47)
[2023-07-23] VITALS (8 sets, daily range): BP systolic 153–165; BP diastolic 81–96; TEMP 97.5–98.1; O2SAT 90–94
[2023-07-23 06:35] LABS: BLOOD UREA NITROGEN 18 MG/DL (9-23); CALCIUM LEVEL 9.4 MG/DL (8.3-10.6); CARBON DIOXIDE LEVEL 28 MMOL/L (20-31); CHLORIDE LEVEL 101 MMOL/L (98-107); CREATININE FOR GFR 0.44 MG/DL (0.70-1.30); GLOMERULAR FILTRATION RATE > 60.0 (>49); GLUCOSE, FASTING 127 MG/DL (74-106); MAGNESIUM LEVEL 1.6 MG/DL (1.8-2.4); POTASSIUM SERUM 4.6 MMOL/L (3.5-5.1); SODIUM LEVEL 135 MMOL/L (136-145)
[2023-07-23 06:47] LABS: PROCALCITONIN <0.04 ng/ml
[2023-07-23] MEDS: MAG SULF 1GM/100ML (MAG RUN) 1 GM in IV 1 EA IV ONE (08:15)
[2023-07-23] MEDS: MOM 30ML SUSPENSION UDC PO PRN (08:26)
[2023-07-23] MEDS: MUPIROCIN 2% OINT 22 GM TUBE TOP SCH (10:51)
[2023-07-23] MEDS: LORazepam 2 MG TAB PO PRN (13:55)
[2023-07-24] VITALS (7 sets, daily range): BP systolic 108–165; BP diastolic 70–96; TEMP 95.2–98.1; O2SAT 92–94
[2023-07-24 06:32] LABS: BLOOD UREA NITROGEN 18 MG/DL (9-23); CALCIUM LEVEL 9.4 MG/DL (8.3-10.6); CARBON DIOXIDE LEVEL 29 MMOL/L (20-31); CHLORIDE LEVEL 105 MMOL/L (98-107); CREATININE FOR GFR 0.48 MG/DL (0.70-1.30); GLOMERULAR FILTRATION RATE > 60.0 (>49); GLUCOSE, FASTING 98 MG/DL (74-106); MAGNESIUM LEVEL 1.8 MG/DL (1.8-2.4); POTASSIUM SERUM 4.5 MMOL/L (3.5-5.1); SODIUM LEVEL 141 MMOL/L (136-145)
[2023-07-24] MEDS: OXAZEPAM 15MG CAP PO SCH (12:02)
[2023-07-24] MEDS: BISACODYL 10MG SUPP PR PRN (15:00)
[2023-07-24] MEDS: SENOKOT S TAB PO SCH (15:00)
[2023-07-25] VITALS (7 sets, daily range): BP systolic 135–152; BP diastolic 57–104; TEMP 97.2–97.5; O2SAT 92–94
[2023-07-25 06:21] LABS: BLOOD UREA NITROGEN 20 MG/DL (9-23); CALCIUM LEVEL 9.7 MG/DL (8.3-10.6); CARBON DIOXIDE LEVEL 28 MMOL/L (20-31); CHLORIDE LEVEL 101 MMOL/L (98-107); CREATININE FOR GFR 0.48 MG/DL (0.70-1.30); GLOMERULAR FILTRATION RATE > 60.0 (>49); GLUCOSE, FASTING 116 MG/DL (74-106); MAGNESIUM LEVEL 1.7 MG/DL (1.8-2.4); POTASSIUM SERUM 4.4 MMOL/L (3.5-5.1); SODIUM LEVEL 136 MMOL/L (136-145)
[2023-07-25] MEDS: MAG SULF 1GM/100ML (MAG RUN) 1 GM in IV 1 EA IV SCH (08:24)
[2023-07-25] MEDS: predniSONE 10MG TAB PO SCH (08:25)
[2023-07-25] MEDS ORDERED: DOXY100T PO (11:43)
[2023-07-25] MEDS ORDERED: CEFD1CAP9 PO (11:43)
== END 2023-07-25 15:28 | disposition home or self-care (01) | DRG 194 ==
LOC: M ED 08:28 → M ED INP 14:25 → EEVIPCON 14:25 → M MSPAV 07-21 10:15
PROVIDERS: ADMIT Student in an Organized Health Care Education/Training Program; ATTEND Student in an Organized Health Care Education/Training Program
DX: J13 Pneumonia due to Streptococcus pneumoniae (principal); J44.0 Chronic obstructive pulmonary disease with (acute) lower respiratory infection; E22.2 Syndrome of inappropriate secretion of antidiuretic hormone; E87.1 Hypo-osmolality and hyponatremia; F10.10 Alcohol abuse, uncomplicated; I10 Essential (primary) hypertension; K21.9 Gastro-esophageal reflux disease without esophagitis; E83.42 Hypomagnesemia; Z79.899 Other long term (current) drug therapy; E78.5 Hyperlipidemia, unspecified; F32.A Depression, unspecified; F41.9 Anxiety disorder, unspecified; G47.33 Obstructive sleep apnea (adult) (pediatric); R91.1 Solitary pulmonary nodule; K44.9 Diaphragmatic hernia without obstruction or gangrene; F17.200 Nicotine dependence, unspecified, uncomplicated; Z79.52 Long term (current) use of systemic steroids; K59.00 Constipation, unspecified

== ENCOUNTER 2023-08-18 14:14 | Inpatient (IN) | payer MEDICARE ==
[~2023-08-18] VITALS: Ht 180.3 cm; Wt 103.5 kg
[~2023-08-18 14:14] MED LIST changes: +ALBU8.5H INH; +CEFD1CAP9 PO; +DOXY100T PO; +PRED10TA2 PO
[2023-08-18] MEDS ORDERED: LORazepam 2 MG TAB PO PRN ×2 (15:05→16:45)
[2023-08-18 15:19] LABS: VENOUS BASE EXCESS 0.6 (-2.0-2.0); VENOUS HCO3 24.2 MMOL/L (23.0-27.0); VENOUS O2 SATURATION 97.9 % (60.0-80.0); VENOUS PARTIAL PRESSURE CO2 35.4 mmHg (38.0-50.0); VENOUS PARTIAL PRESSURE O2 106.2 mmHg (30.0-50.0); VENOUS PH 7.452 UNITS (7.330-7.430); VENOUS TOTAL CO2 25.2 MMOL/L (24.0-28.0)
[2023-08-18 15:23] LABS: BASO % 0.4 % (0.0-1.0); EOS # 0.2 10^3/uL (0.0-0.5); EOS % 2.5 % (0.0-3.0); HEMATOCRIT 33.4 % (42.0-52.0); HEMOGLOBIN 11.7 g/dl (13.5-17.5); LYMPH # 1.6 10^3/uL (1.5-5.0); LYMPH % 19.9 % (24.0-44.0); MEAN CORPUSCULAR HEMOGLOBIN 29.5 pg (27.0-33.0); MEAN CORPUSCULAR VOLUME 84.1 fl (80.0-96.0); MONO # 0.5 10^3/uL (0.0-0.8); MONO % 6.6 % (2.0-8.0); NEUTROPHILS # 5.7 10^3/uL (1.5-8.5); NEUTROPHILS % 70.2 % (36.0-66.0); PLATELET COUNT, AUTOMATED 269 10^3/uL (150-450); RED BLOOD COUNT 3.97 10^6/uL (4.30-6.10); WHITE BLOOD COUNT 8.1 10^3/uL (4.0-10.0)
[2023-08-18 15:54] LABS: ETHYL ALCOHOL (ETHANOL) 0.005 % (0.000-0.010)
[2023-08-18 15:56] LABS: ALBUMIN 3.8 G/DL (3.2-5.2); ALKALINE PHOSPHATASE 114 U/L (46-116); ALT/SGPT 49 U/L (7.0-40); AST/SGOT 30 U/L (<34); BILIRUBIN,DIRECT 0.2 MG/DL (<0.4); BILIRUBIN,TOTAL 0.5 MG/DL (0.3-1.2); BLOOD UREA NITROGEN 13 MG/DL (9-23); CALCIUM LEVEL 9.4 MG/DL (8.3-10.6); CARBON DIOXIDE LEVEL 24 MMOL/L (20-31); CHLORIDE LEVEL 89 MMOL/L (98-107); CREATININE FOR GFR 0.45 MG/DL (0.70-1.30); GLOMERULAR FILTRATION RATE > 60.0 (>49); GLUCOSE, FASTING 91 MG/DL (74-106); MAGNESIUM LEVEL 1.7 MG/DL (1.8-2.4); POTASSIUM SERUM 4.3 MMOL/L (3.5-5.1); SODIUM LEVEL 121 MMOL/L (136-145); TOTAL PROTEIN 6.4 G/DL (5.7-8.2)
[2023-08-18 16:00] LABS: THYROID STIMULATING HORMONE 1.334 uIU/ML (0.55-4.78)
[2023-08-18] MEDS: MULTIVITAMINS/MINERALS THERAP 1 TAB PO SCH (17:00)
[2023-08-18] MEDS: THIAMINE 100 MG TAB PO SCH (17:00)
[2023-08-18] MEDS ORDERED: IPRATROPIUM 0.5MG/ALBUTEROL 2.5MG INH SOL UD 3ML (DUONEB) NEB PRN (17:00)
[2023-08-18] MEDS: FOLIC ACID 1MG TAB PO SCH (17:01)
[2023-08-18] MEDS: MAG SULF 1GM/100ML (MAG RUN) 1 GM in IV 1 EA IV ONE ×2 (17:01→18:32)
[2023-08-18 17:04] LABS: FREE T4 1.06 NG/DL (0.89-1.76)
[2023-08-18] MEDS ORDERED: AZITHROMYCIN 250MG TABLET PO SCH (17:10)
[2023-08-18] MEDS ORDERED: HOME MED LIST COMPLETE! XX SCH (17:20)
[2023-08-18] MEDS ORDERED: ALBUTEROL 90 MCG/ACT 8GM HFA INHALER INH PRN (17:25)
[2023-08-18] MEDS: predniSONE 20 MG TAB PO SCH (18:01)
[2023-08-18] MEDS: PANTOPRAZOLE 40MG VIAL IV SCH (18:02)
[2023-08-18 18:30] VITALS: BP 135/80; TEMP 98.2; O2SAT 96
[2023-08-18 18:36] VITALS: BP 135/80
[2023-08-18] MEDS: MULTIVITAMIN -ADULT INJECTION 10 ML, THIAMINE INJection 100 MG, FOLIC ACID 1 MG in NS 1... IV ONE (19:36)
[2023-08-18 20:00] VITALS: BP 149/82
[2023-08-18] MEDS: DULoxetine 30MG CAPSULE (CYMBALTA) PO SCH (20:19)
[2023-08-18] MEDS: NICOTINE 21MG/24HR 1 EA TRANSDERMAL TD SCH (20:19)
[2023-08-18] MEDS: ATORVASTATIN 20 MG TAB PO SCH (20:19)
[2023-08-18] MEDS: lamoTRIgine 25MG TAB PO SCH (20:20)
[2023-08-18] MEDS: amLODIPine 5 MG TAB PO SCH (20:25)
[2023-08-18] MEDS: ACETAMINOPHEN TAB 650MG DOSE (2X325MG) PO PRN (20:28)
[2023-08-18] MEDS: ADVAIR HFA 115/21MCG INHALER INH SCH (20:54)
[2023-08-18] MEDS: IPRATROPIUM 0.5MG/ALBUTEROL 2.5MG INH SOL UD 3ML (DUONEB) NEB SCH (20:54)
[2023-08-18 22:00] VITALS: BP 149/82; TEMP 98.1; O2SAT 92
[2023-08-18] MEDS: SODIUM CHLORIDE 1 GM TAB PO ONE (23:44)
[2023-08-19] VITALS (8 sets, daily range): BP systolic 134–153; BP diastolic 58–95; TEMP 98.1–98.2; O2SAT 90–96
[2023-08-19] MEDS: BENZONATATE 100MG CAPSULE PO PRN (01:43)
[2023-08-19 06:36] LABS: BASO % 0.2 % (0.0-1.0); EOS % 0.2 % (0.0-3.0); HEMATOCRIT 32.9 % (42.0-52.0); HEMOGLOBIN 11.5 g/dl (13.5-17.5); LYMPH # 0.7 10^3/uL (1.5-5.0); LYMPH % 15.8 % (24.0-44.0); MEAN CORPUSCULAR HEMOGLOBIN 29.2 pg (27.0-33.0); MEAN CORPUSCULAR VOLUME 83.5 fl (80.0-96.0); MONO # 0.2 10^3/uL (0.0-0.8); MONO % 4.8 % (2.0-8.0); NEUTROPHILS # 3.5 10^3/uL (1.5-8.5); NEUTROPHILS % 78.3 % (36.0-66.0); PLATELET COUNT, AUTOMATED 249 10^3/uL (150-450); RED BLOOD COUNT 3.94 10^6/uL (4.30-6.10); WHITE BLOOD COUNT 4.4 10^3/uL (4.0-10.0)
[2023-08-19 07:04] LABS: BLOOD UREA NITROGEN 8 MG/DL (9-23); CALCIUM LEVEL 8.6 MG/DL (8.3-10.6); CARBON DIOXIDE LEVEL 25 MMOL/L (20-31); CHLORIDE LEVEL 88 MMOL/L (98-107); CREATININE FOR GFR 0.36 MG/DL (0.70-1.30); GLOMERULAR FILTRATION RATE > 60.0 (>49); GLUCOSE, FASTING 135 MG/DL (74-106); POTASSIUM SERUM 4.3 MMOL/L (3.5-5.1); SODIUM LEVEL 118 MMOL/L (136-145)
[2023-08-19 07:55] LABS: CREATININE,RANDOM URINE 45.6 MG/DL
[2023-08-19] MEDS: THIAMINE 100 MG TAB PO SCH (08:50)
[2023-08-19] MEDS: FOLIC ACID 1MG TAB PO SCH (08:50)
[2023-08-19] MEDS: MULTIVITAMINS/MINERALS THERAP 1 TAB PO SCH (08:50)
[2023-08-19] MEDS: buPROPion **XL** TABLET 150MG (WELLBUTRIN XL) PO SCH (08:50)
[2023-08-19] MEDS: IBUPROFEN 400MG TAB PO ONE (08:51)
[2023-08-19] MEDS: AZITHROMYCIN 250MG TABLET PO SCH (08:51)
[2023-08-19] MEDS: TOLVAPTAN 7.5 MG HALF-TAB PO ONE (09:12)
[2023-08-19] MEDS: MUPIROCIN 2% OINT 22 GM TUBE TOP SCH (12:15)
[2023-08-19] MEDS: CHLORHEXIDINE GLUCONATE 0.12 % 15ML UDC (PERIDEX ORAL RINSE) MT SCH (12:15)
[2023-08-19] MEDS: ENOXAPARIN 40MG/0.4ML SYRINGE (J1650 PER 10MG) SC SCH (20:13)
[2023-08-19] MEDS: D5W 500ML IV ONE (20:15)
[2023-08-20] VITALS (9 sets, daily range): BP systolic 116–141; BP diastolic 71–88; TEMP 97.5–98.2; O2SAT 89–95
[2023-08-20 00:57] LABS: BLOOD UREA NITROGEN 13 MG/DL (9-23); CALCIUM LEVEL 8.7 MG/DL (8.3-10.6); CARBON DIOXIDE LEVEL 27 MMOL/L (20-31); CHLORIDE LEVEL 101 MMOL/L (98-107); CREATININE FOR GFR 0.54 MG/DL (0.70-1.30); GLOMERULAR FILTRATION RATE > 60.0 (>49); GLUCOSE, FASTING 145 MG/DL (74-106); POTASSIUM SERUM 3.8 MMOL/L (3.5-5.1); SODIUM LEVEL 133 MMOL/L (136-145)
[2023-08-20] MEDS: D5W 500 ML IV ONE (01:52)
[2023-08-20 06:49] LABS: BASO % 0.3 % (0.0-1.0); EOS # 0.1 10^3/uL (0.0-0.5); EOS % 1.1 % (0.0-3.0); HEMATOCRIT 34.4 % (42.0-52.0); HEMOGLOBIN 11.7 g/dl (13.5-17.5); LYMPH # 1.7 10^3/uL (1.5-5.0); MEAN CORPUSCULAR HEMOGLOBIN 29.3 pg (27.0-33.0); MONO # 0.7 10^3/uL (0.0-0.8); MONO % 11.5 % (2.0-8.0); NEUTROPHILS # 3.8 10^3/uL (1.5-8.5); NEUTROPHILS % 60.6 % (36.0-66.0); PLATELET COUNT, AUTOMATED 247 10^3/uL (150-450); WHITE BLOOD COUNT 6.3 10^3/uL (4.0-10.0)
[2023-08-20 07:20] LABS: BLOOD UREA NITROGEN 14 MG/DL (9-23); CALCIUM LEVEL 7.6 MG/DL (8.3-10.6); CARBON DIOXIDE LEVEL 28 MMOL/L (20-31); CHLORIDE LEVEL 101 MMOL/L (98-107); CREATININE FOR GFR 0.41 MG/DL (0.70-1.30); GLOMERULAR FILTRATION RATE > 60.0 (>49); GLUCOSE, FASTING 100 MG/DL (74-106); MAGNESIUM LEVEL 2.1 MG/DL (1.8-2.4); POTASSIUM SERUM 3.8 MMOL/L (3.5-5.1); SODIUM LEVEL 134 MMOL/L (136-145)
[2023-08-20] MEDS: DESMOPRESSIN 4 MCG/ML INJ VIAL/AMP IV ONE ×2 (09:20→16:19)
[2023-08-20] MEDS: D5W 1,000 ML IV SCH (09:20)
[2023-08-20] MEDS ORDERED: LEVALBUTEROL 1.25MG 0.5ML CONCENTRATE NEB INH PRN (09:35)
[2023-08-20] MEDS: METOPROLOL TART 25 MG TABLET PO ONE (09:44)
[2023-08-20] MEDS ORDERED: GLUCOSE 4GM CHEW TABLET PO PRN (14:50)
[2023-08-20] MEDS ORDERED: GLUCAGON INJ 1MG VIAL SC PRN (14:50)
[2023-08-20] MEDS ORDERED: DEXTROSE 50% 50ML SYRINGE IV PRN (14:50)
[2023-08-20] MEDS: LEVALBUTEROL 1.25MG 0.5ML CONCENTRATE NEB INH SCH (15:23)
[2023-08-20] MEDS: METOPROLOL TART 25 MG TABLET PO SCH (17:26)
[2023-08-20] MEDS: INSULIN LISPRO (NovoLOG) PER UNIT SC SCH ×2 (17:27→20:21)
[2023-08-20] MEDS ORDERED: INSULIN LISPRO (NovoLOG) PER UNIT SC SCH (18:00)
[2023-08-20] MEDS ORDERED: NICOTINE POLACRILEX 2 MG GUM PO PRN (20:10)
[2023-08-21] VITALS (10 sets, daily range): BP systolic 122–144; BP diastolic 78–97; TEMP 97.5–98.2; O2SAT 91–95
[2023-08-21 06:55] LABS: BASO % 0.4 % (0.0-1.0); EOS # 0.1 10^3/uL (0.0-0.5); EOS % 1.3 % (0.0-3.0); HEMOGLOBIN 11.2 g/dl (13.5-17.5); LYMPH # 2.8 10^3/uL (1.5-5.0); MEAN CORPUSCULAR HEMOGLOBIN 28.9 pg (27.0-33.0); MEAN CORPUSCULAR HGB CONC 32.9 g/dl (32.0-36.5); MEAN CORPUSCULAR VOLUME 87.6 fl (80.0-96.0); MONO # 0.7 10^3/uL (0.0-0.8); MONO % 7.3 % (2.0-8.0); NEUTROPHILS # 5.3 10^3/uL (1.5-8.5); NEUTROPHILS % 59.7 % (36.0-66.0); PLATELET COUNT, AUTOMATED 261 10^3/uL (150-450); RED BLOOD COUNT 3.88 10^6/uL (4.30-6.10); WHITE BLOOD COUNT 8.9 10^3/uL (4.0-10.0)
[2023-08-21 07:20] LABS: BLOOD UREA NITROGEN 16 MG/DL (9-23); CALCIUM LEVEL 9.2 MG/DL (8.3-10.6); CARBON DIOXIDE LEVEL 29 MMOL/L (20-31); CHLORIDE LEVEL 96 MMOL/L (98-107); CREATININE FOR GFR 0.49 MG/DL (0.70-1.30); GLOMERULAR FILTRATION RATE > 60.0 (>49); GLUCOSE, FASTING 105 MG/DL (74-106); MAGNESIUM LEVEL 1.7 MG/DL (1.8-2.4); POTASSIUM SERUM 4.2 MMOL/L (3.5-5.1); SODIUM LEVEL 130 MMOL/L (136-145)
[2023-08-21] MEDS: MAG SULF 1GM/100ML (MAG RUN) 1 GM in IV 1 EA IV ONE (08:34)
[2023-08-21] MEDS ORDERED: ELIQ5TAB PO (10:19)
[2023-08-21] MEDS: APIXABAN 5 MG TAB (ELIQUIS) PO SCH (11:22)
[2023-08-22] VITALS (8 sets, daily range): BP systolic 143–155; BP diastolic 71–99; TEMP 97.7–98.1; O2SAT 91–94
[2023-08-22 06:24] LABS: BASO % 0.3 % (0.0-1.0); EOS # 0.1 10^3/uL (0.0-0.5); EOS % 0.7 % (0.0-3.0); HEMATOCRIT 34.4 % (42.0-52.0); HEMOGLOBIN 11.3 g/dl (13.5-17.5); LYMPH % 30.1 % (24.0-44.0); MEAN CORPUSCULAR HEMOGLOBIN 28.8 pg (27.0-33.0); MEAN CORPUSCULAR HGB CONC 32.8 g/dl (32.0-36.5); MEAN CORPUSCULAR VOLUME 87.5 fl (80.0-96.0); MONO # 0.7 10^3/uL (0.0-0.8); NEUTROPHILS % 61.4 % (36.0-66.0); PLATELET COUNT, AUTOMATED 275 10^3/uL (150-450); RED BLOOD COUNT 3.93 10^6/uL (4.30-6.10); WHITE BLOOD COUNT 9.8 10^3/uL (4.0-10.0)
[2023-08-22 06:59] LABS: BLOOD UREA NITROGEN 19 MG/DL (9-23); CALCIUM LEVEL 9.1 MG/DL (8.3-10.6); CARBON DIOXIDE LEVEL 28 MMOL/L (20-31); CHLORIDE LEVEL 96 MMOL/L (98-107); CREATININE FOR GFR 0.47 MG/DL (0.70-1.30); GLOMERULAR FILTRATION RATE > 60.0 (>49); GLUCOSE, FASTING 104 MG/DL (74-106); MAGNESIUM LEVEL 1.8 MG/DL (1.8-2.4); POTASSIUM SERUM 4.3 MMOL/L (3.5-5.1); SODIUM LEVEL 129 MMOL/L (136-145)
[2023-08-22] MEDS: amLODIPine 5 MG TAB PO SCH (08:39)
[2023-08-22] MEDS: TOLVAPTAN 7.5 MG HALF-TAB PO ONE (13:35)
[2023-08-22] MEDS: METOPROLOL TART 25 MG TABLET PO SCH (20:04)
[2023-08-23 02:00] VITALS: BP 144/93; TEMP 98.2; O2SAT 93
[2023-08-23 06:00] VITALS: BP_SYST 145; BP_DIAS 91; BP_DIAS 93; TEMP 97.9; O2SAT 93
[2023-08-23 06:09] VITALS: O2SAT 93
[2023-08-23 06:46] LABS: BASO % 0.3 % (0.0-1.0); EOS # 0.1 10^3/uL (0.0-0.5); EOS % 0.4 % (0.0-3.0); HEMOGLOBIN 11.4 g/dl (13.5-17.5); LYMPH # 1.8 10^3/uL (1.5-5.0); LYMPH % 15.8 % (24.0-44.0); MEAN CORPUSCULAR HEMOGLOBIN 28.8 pg (27.0-33.0); MEAN CORPUSCULAR HGB CONC 32.6 g/dl (32.0-36.5); MEAN CORPUSCULAR VOLUME 88.4 fl (80.0-96.0); MONO # 1.1 10^3/uL (0.0-0.8); MONO % 9.8 % (2.0-8.0); NEUTROPHILS # 8.3 10^3/uL (1.5-8.5); NEUTROPHILS % 73.2 % (36.0-66.0); PLATELET COUNT, AUTOMATED 268 10^3/uL (150-450); RED BLOOD COUNT 3.96 10^6/uL (4.30-6.10); WHITE BLOOD COUNT 11.4 10^3/uL (4.0-10.0)
[2023-08-23 07:16] LABS: BLOOD UREA NITROGEN 15 MG/DL (9-23); CALCIUM LEVEL 9.2 MG/DL (8.3-10.6); CARBON DIOXIDE LEVEL 29 MMOL/L (20-31); CHLORIDE LEVEL 97 MMOL/L (98-107); CREATININE FOR GFR 0.51 MG/DL (0.70-1.30); GLOMERULAR FILTRATION RATE > 60.0 (>49); GLUCOSE, FASTING 108 MG/DL (74-106); MAGNESIUM LEVEL 1.6 MG/DL (1.8-2.4); POTASSIUM SERUM 4.2 MMOL/L (3.5-5.1); SODIUM LEVEL 131 MMOL/L (136-145)
[2023-08-23] MEDS: MAG SULF 1GM/100ML (MAG RUN) 1 GM in IV 1 EA IV SCH (08:13)
[2023-08-23 08:16] VITALS: BP 132/81
[2023-08-23] MEDS: FUROSEMIDE 10MG PER 1/2 TABLET PO SCH (09:53)
[2023-08-23] MEDS: SODIUM CHLORIDE 1 GM TAB PO SCH (09:53)
[2023-08-23 09:57] VITALS: BP 126/70; TEMP 98.2; O2SAT 95
[2023-08-23 10:00] VITALS: BP 126/72
[2023-08-23] MEDS ORDERED: SODI1TAB6 PO (10:53)
[2023-08-23] MEDS ORDERED: FURO20TA2 PO (10:53)
[2023-08-23] MEDS ORDERED: METO1TAB87 PO (10:53)
[2023-08-23] MEDS ORDERED: PRED10PA PO (10:53)
== END 2023-08-23 12:50 | disposition home or self-care (01) | DRG 644 ==
LOC: M ED 14:14 → M ED INP 16:36 → ENRESERV 17:52 → M MSPAV 18:12
PROVIDERS: ADMIT Internal Medicine; ATTEND Internal Medicine
PROC: B246ZZZ Ultrasonography of Right and Left Heart (ICD-10-PCS; principal; 2023-08-21)
DX: E22.2 Syndrome of inappropriate secretion of antidiuretic hormone (principal); E87.1 Hypo-osmolality and hyponatremia; J44.1 Chronic obstructive pulmonary disease with (acute) exacerbation; F10.288 Alcohol dependence with other alcohol-induced disorder; F10.239 Alcohol dependence with withdrawal, unspecified; I27.81 Cor pulmonale (chronic); K21.9 Gastro-esophageal reflux disease without esophagitis; K44.9 Diaphragmatic hernia without obstruction or gangrene; E78.5 Hyperlipidemia, unspecified; I10 Essential (primary) hypertension; G47.33 Obstructive sleep apnea (adult) (pediatric); F39 Unspecified mood [affective] disorder; I48.91 Unspecified atrial fibrillation; F17.210 Nicotine dependence, cigarettes, uncomplicated; I95.1 Orthostatic hypotension; E83.42 Hypomagnesemia; Z71.6 Tobacco abuse counseling; Z71.41 Alcohol abuse counseling and surveillance of alcoholic; Z79.899 Other long term (current) drug therapy; Z11.52 Encounter for screening for COVID-19

== ENCOUNTER 2023-10-07 10:19 | Emergency (ER) | payer MEDICARE ==
[~2023-10-07] VITALS: Ht 180.3 cm; Wt 105.0 kg
[~2023-10-07 10:19] MED LIST changes: +BUPR-597 PO; -BUPR300T92 PO; +ELIQ5TAB PO; +FURO20TA2 PO; +METO1TAB87 PO; +PRED10PA PO; +SODI1TAB6 PO
[2023-10-07 11:14] LABS: BASO % 0.1 % (0.0-1.0); EOS % 0.1 % (0.0-3.0); HEMATOCRIT 37.3 % (42.0-52.0); HEMOGLOBIN 12.7 g/dl (13.5-17.5); LYMPH % 6.6 % (24.0-44.0); MEAN CORPUSCULAR HEMOGLOBIN 27.7 pg (27.0-33.0); MEAN CORPUSCULAR VOLUME 81.3 fl (80.0-96.0); MONO # 1.4 10^3/uL (0.0-0.8); MONO % 9.3 % (2.0-8.0); NEUTROPHILS # 12.2 10^3/uL (1.5-8.5); NEUTROPHILS % 83.3 % (36.0-66.0); PLATELET COUNT, AUTOMATED 446 10^3/uL (150-450); RED BLOOD COUNT 4.59 10^6/uL (4.30-6.10); WHITE BLOOD COUNT 14.6 10^3/uL (4.0-10.0)
[2023-10-07 11:28] LABS: INR 1.27; PROTHROMBIN TIME 15.5 SECONDS (12.5-14.5)
[2023-10-07 11:38] LABS: AMYLASE 57 U/L (30-118)
[2023-10-07 11:41] LABS: ALBUMIN 2.8 G/DL (3.2-5.2); ALKALINE PHOSPHATASE 513 U/L (46-116); ALT/SGPT 327 U/L (7.0-40); AST/SGOT 256 U/L (<34); BILIRUBIN,DIRECT 3.2 MG/DL (<0.4); BILIRUBIN,TOTAL 4.5 MG/DL (0.3-1.2); BLOOD UREA NITROGEN 16 MG/DL (9-23); CALCIUM LEVEL 8.6 MG/DL (8.3-10.6); CARBON DIOXIDE LEVEL 29 MMOL/L (20-31); CHLORIDE LEVEL 87 MMOL/L (98-107); CK-MB VALUE MASS 5.7 NG/ML (<3.6); CPK CREATINE PHOSPHOKINASE 225 U/L (46-171); CREATININE FOR GFR 0.41 MG/DL (0.70-1.30); GLOMERULAR FILTRATION RATE > 60.0 (>49); GLUCOSE, FASTING 101 MG/DL (74-106); LIPASE 50 U/L (12-53); MB/CK RELATIVE INDEX 2.53 (< OR =4); POTASSIUM SERUM 4.6 MMOL/L (3.5-5.1); SODIUM LEVEL 125 MMOL/L (136-145); TOTAL PROTEIN 6.5 G/DL (5.7-8.2)
[2023-10-07] MEDS ORDERED: ISOVUE-370 76% 100ML VIAL As Ordered ONE (11:44)
[2023-10-07 11:58] VITALS: BP 157/95
[2023-10-07] MEDS: METOPROLOL TART 25 MG TABLET PO ONE (11:58)
[2023-10-07] MEDS: NS 1,000 ML IV ONE (11:58)
[2023-10-07] MEDS: METOPROLOL 5 MG/5 ML VIAL IV STA (11:58)
[2023-10-07 12:38] LABS: THYROID STIMULATING HORMONE 1.076 uIU/ML (0.55-4.78)
[2023-10-07 12:39] LABS: FREE T4 1.24 NG/DL (0.89-1.76)
[2023-10-07 12:55] LABS: HEPATITIS B SURFACE ANTIGEN NEGATIVE (NEGATIVE)
[2023-10-07 13:08] LABS: CK-MB VALUE MASS 5.2 NG/ML (<3.6)
[2023-10-07 13:15] LABS: MB/CK RELATIVE INDEX 2.87 (< OR =4)
[2023-10-07 13:16] LABS: HEPATITIS C VIRUS ABY INDEX < 0.02 INDEX (<0.8)
[2023-10-07 13:17] LABS: HEPATITIS B CORE ANTIBODY IGM NEGATIVE (NEGATIVE)
[2023-10-07] MEDS ORDERED: ELIQ5TAB PO (13:31)
[2023-10-07] MEDS ORDERED: METO1TAB87 PO (13:31)
[2023-10-07] MEDS ORDERED: SODI1TAB12 PO (13:31)
[2023-10-07] MEDS ORDERED: HOME MED LIST COMPLETE! XX SCH (13:35)
[2023-10-07] MEDS: PIPERACILLIN/TAZOBACTAM SOD 4.5 GM in D5W MINI-BAG PLUS 50 ML IV ONE (17:19)
[2023-10-07 18:15] VITALS: BP_DIAS 94
[2023-10-07 18:56] VITALS: BP_SYST 177; TEMP 98.7; O2SAT 93
== END 2023-10-07 19:07 | disposition short-term general hospital (02) ==
LOC: M ED 10:19
DX: R16.0 Hepatomegaly, not elsewhere classified (principal); K72.90 Hepatic failure, unspecified without coma; J90 Pleural effusion, not elsewhere classified; K74.60 Unspecified cirrhosis of liver; E27.9 Disorder of adrenal gland, unspecified; N28.1 Cyst of kidney, acquired; K57.30 Diverticulosis of large intestine without perforation or abscess without bleeding; I10 Essential (primary) hypertension; I48.91 Unspecified atrial fibrillation; F32.A Depression, unspecified; F17.200 Nicotine dependence, unspecified, uncomplicated; Z79.899 Other long term (current) drug therapy
CPT/HCPCS: 71045; 74177; 76705; 80048; 80074; 80076; 81001; 82150; 82550; 82553; 83605; 83690; 84439; 84443; 84484; 85025; 85610; 86850; 86900; 86901; 87040; 87635; 93005; 93041; 96361; 96374; 96375; 99285; J2543; Q9967

== ENCOUNTER 2023-11-29 15:55 | Observation (INO) | payer MEDICARE ==
[~2023-11-29] VITALS: Ht 180.3 cm; Wt 93.2 kg
[~2023-11-29 15:55] MED LIST changes: +SODI1TAB12 PO
[2023-11-29 16:59] LABS: BLOOD UREA NITROGEN 25 MG/DL (9-23); CARBON DIOXIDE LEVEL 28 MMOL/L (20-31); CHLORIDE LEVEL 103 MMOL/L (98-107); CK-MB VALUE MASS 1.3 NG/ML (<3.6); CPK CREATINE PHOSPHOKINASE 26 U/L (46-171); CREATININE FOR GFR 0.77 MG/DL (0.70-1.30); GLOMERULAR FILTRATION RATE > 60.0 (>49); GLUCOSE, FASTING 96 MG/DL (74-106); SODIUM LEVEL 136 MMOL/L (136-145)
[2023-11-29 17:14] LABS: BASO % 0.3 % (0.0-1.0); EOS % 0.3 % (0.0-3.0); HEMATOCRIT 35.2 % (42.0-52.0); HEMOGLOBIN 11.2 g/dl (13.5-17.5); LYMPH # 1.4 10^3/uL (1.5-5.0); LYMPH % 11.4 % (24.0-44.0); MEAN CORPUSCULAR HEMOGLOBIN 27.6 pg (27.0-33.0); MEAN CORPUSCULAR HGB CONC 31.8 g/dl (32.0-36.5); MEAN CORPUSCULAR VOLUME 86.7 fl (80.0-96.0); MONO # 0.2 10^3/uL (0.0-0.8); MONO % 1.4 % (2.0-8.0); NEUTROPHILS # 10.2 10^3/uL (1.5-8.5); NEUTROPHILS % 86.1 % (36.0-66.0); PLATELET COUNT, AUTOMATED 382 10^3/uL (150-450); RED BLOOD COUNT 4.06 10^6/uL (4.30-6.10); WHITE BLOOD COUNT 11.9 10^3/uL (4.0-10.0)
[2023-11-29 17:39] LABS: INR 1.02; PARTIAL THROMBOPLASTIN TIME 24.8 SECONDS (24.8-34.2); PROTHROMBIN TIME 13.1 SECONDS (12.5-14.5)
[2023-11-29] MEDS ORDERED: FURO20TA2 PO (18:12)
[2023-11-29] MEDS ORDERED: SPIR50TA4 PO (18:12)
[2023-11-29] MEDS ORDERED: AMLO2.5T3 PO (18:12)
[2023-11-29] MEDS ORDERED: BUPR75TA5 PO (18:12)
[2023-11-29] MEDS ORDERED: PROC10TA5 PO (18:12)
[2023-11-29] MEDS ORDERED: ALLO100T PO (18:12)
[2023-11-29] MEDS: NS 500 ML IV ONE (19:05)
[2023-11-29] MEDS: NS 1,000 ML IV SCH ×2 (19:05→20:40)
[2023-11-29 19:40] LABS: MAGNESIUM LEVEL 1.1 MG/DL (1.8-2.4)
[2023-11-29] MEDS: MAG SULF 1GM/100ML (MAG RUN) 1 GM in IV 1 EA IV ONE (19:57)
[2023-11-29] MEDS ORDERED: ACETAMINOPHEN TAB 650MG DOSE (2X325MG) PO PRN (20:35)
[2023-11-29] MEDS ORDERED: RA M10TA PO (20:41)
[2023-11-29] MEDS ORDERED: ONDA-83 PO (20:41)
[2023-11-29] MEDS ORDERED: THIA100T7 PO (20:41)
[2023-11-29] MEDS ORDERED: ZINC220CA PO (20:43)
[2023-11-29] MEDS ORDERED: FOLI1TAB11 PO (20:43)
[2023-11-29] MEDS ORDERED: HOME MED LIST COMPLETE! XX SCH (20:45)
[2023-11-29] MEDS: DULoxetine 30MG CAPSULE (CYMBALTA) PO SCH (21:00)
[2023-11-29] MEDS: MAG SULF 1GM/100ML (MAG RUN) 1 GM in IV 1 EA IV SCH (22:00)
[2023-11-30] MEDS ORDERED: PROCHLORPERAZINE 5MG TAB PO PRN (00:15)
[2023-11-30] MEDS ORDERED: ALBUTEROL 90 MCG/ACT 8GM HFA INHALER INH PRN (00:15)
[2023-11-30] MEDS ORDERED: ONDANSETRON 4MG TAB PO PRN (00:15)
[2023-11-30 07:00] LABS: HEMATOCRIT 33.8 % (42.0-52.0); MEAN CORPUSCULAR HEMOGLOBIN 27.6 pg (27.0-33.0); MEAN CORPUSCULAR HGB CONC 32.5 g/dl (32.0-36.5); MEAN CORPUSCULAR VOLUME 84.9 fl (80.0-96.0); PLATELET COUNT, AUTOMATED 287 10^3/uL (150-450); RED BLOOD COUNT 3.98 10^6/uL (4.30-6.10); WHITE BLOOD COUNT 7.1 10^3/uL (4.0-10.0)
[2023-11-30 07:22] LABS: BLOOD UREA NITROGEN 19 MG/DL (9-23); CALCIUM LEVEL 9.1 MG/DL (8.3-10.6); CARBON DIOXIDE LEVEL 27 MMOL/L (20-31); CHLORIDE LEVEL 107 MMOL/L (98-107); CREATININE FOR GFR 0.58 MG/DL (0.70-1.30); GLOMERULAR FILTRATION RATE > 60.0 (>49); GLUCOSE, FASTING 102 MG/DL (74-106); MAGNESIUM LEVEL 1.7 MG/DL (1.8-2.4); POTASSIUM SERUM 4.7 MMOL/L (3.5-5.1); SODIUM LEVEL 140 MMOL/L (136-145)
[2023-11-30] MEDS: allopurinoL 100 MG TAB PO SCH (08:22)
[2023-11-30] MEDS: FOLIC ACID 1MG TAB PO SCH (08:22)
[2023-11-30] MEDS: MIDODRINE 5 MG TAB PO ONE (08:23)
[2023-11-30] MEDS: buPROPion **XL** TABLET 150MG (WELLBUTRIN XL) PO SCH (08:24)
[2023-11-30] MEDS: THIAMINE 100 MG TAB PO SCH (08:24)
[2023-11-30] MEDS: OMEPRAZOLE 20MG CAP PO SCH (08:24)
[2023-11-30] MEDS: ENOXAPARIN 40MG/0.4ML SYRINGE (J1650 PER 10MG) SC SCH (08:25)
[2023-11-30] MEDS ORDERED: ENOXAPARIN 40MG/0.4ML SYRINGE (J1650 PER 10MG) SC SCH (09:00)
[2023-11-30] MEDS: METOPROLOL TART 12.5 MG PER 1/2 TAB PO SCH (11:05)
[2023-11-30] MEDS: NS 500 ML IV ONE (11:09)
[2023-11-30] MEDS: ZINC SULFATE 220 MG CAP PO SCH (11:37)
[2023-11-30 12:11] VITALS: BP 110/74; TEMP 97.9; O2SAT 96
[2023-11-30] MEDS: APIXABAN 5 MG TAB (ELIQUIS) PO SCH (13:18)
[2023-11-30] MEDS: buPROPion 75 MG TAB PO SCH (14:37)
[2023-11-30 16:07] VITALS: BP_SYST 109; BP_SYST 111; BP_SYST 83; BP_DIAS 56; BP_DIAS 73; BP_DIAS 74
[2023-11-30] MEDS: MIDODRINE 5 MG TAB PO SCH (16:33)
[2023-11-30] MEDS: NS 1,000 ML IV ONE (16:34)
[2023-11-30 16:42] VITALS: BP 111/73; TEMP 96.8; O2SAT 96
[2023-11-30 20:00] VITALS: BP 135/88; TEMP 97.2; O2SAT 96
[2023-11-30] MEDS: ATORVASTATIN 20 MG TAB PO SCH (20:38)
[2023-11-30] MEDS: ALPRAZolam 0.5 MG TAB PO PRN (20:39)
[2023-12-01 03:40] VITALS: BP 135/89; TEMP 97.8; O2SAT 94
[2023-12-01] MEDS ORDERED: ELIQ5TAB PO (08:54)
[2023-12-01 09:00] VITALS: BP 127/88
[2023-12-01] MEDS: METOPROLOL TART 25 MG TABLET PO SCH (09:00)
== END 2023-12-01 11:40 | disposition home or self-care (01) ==
LOC: M ED 15:55 → INTOOBSV 20:34 → M ED INP 20:34 → M MSPAV 11-30 12:12
PROVIDERS: ADMIT Preventive Medicine Undersea and Hyperbaric Medicine; ATTEND General Practice
DX: I95.1 Orthostatic hypotension (principal); I48.20 Chronic atrial fibrillation, unspecified; E22.2 Syndrome of inappropriate secretion of antidiuretic hormone; K44.9 Diaphragmatic hernia without obstruction or gangrene; K21.9 Gastro-esophageal reflux disease without esophagitis; Z79.01 Long term (current) use of anticoagulants; I10 Essential (primary) hypertension; E78.5 Hyperlipidemia, unspecified; G47.33 Obstructive sleep apnea (adult) (pediatric); Z79.899 Other long term (current) drug therapy; C34.90 Malignant neoplasm of unspecified part of unspecified bronchus or lung; Z87.891 Personal history of nicotine dependence; E83.42 Hypomagnesemia
CPT/HCPCS: 36415; 71045; 80048; 82550; 82553; 83735; 84484; 85025; 85027; 85610; 85730; 93005; 93041; 93306; 94760; 96361; 96372; 96374; 96376; 97116; 97161; 97530; 99285; G0378; J1650; J3475

== ENCOUNTER → 2023-12-13 | Outpatient (CLI) | payer MEDICARE ==
[~2023-12-13] MED LIST changes: +ALLO100T PO; +AMLO2.5T3 PO; +BUPR75TA5 PO; +FOLI1TAB11 PO; +ONDA-83 PO; +PROC10TA5 PO; +RA M10TA PO; +SPIR50TA4 PO; +THIA100T7 PO; +ZINC220CA PO
== END ==
LOC: M PLARAD 08:01
PROVIDERS: ATTEND Physician Assistant Medical
DX: C34.90 Malignant neoplasm of unspecified part of unspecified bronchus or lung (principal); R91.8 Other nonspecific abnormal finding of lung field
CPT/HCPCS: 78815; A9552

== ENCOUNTER 2024-02-15 11:08 | Observation (INO) | payer MEDICARE ==
[~2024-02-15] VITALS: Ht 180.3 cm; Wt 102.7 kg
[2024-02-15 12:08] LABS: VENOUS BASE EXCESS 3.7 (-2.0-2.0); VENOUS O2 SATURATION 89.6 % (60.0-80.0); VENOUS PARTIAL PRESSURE CO2 46.5 mmHg (38.0-50.0); VENOUS PH 7.413 UNITS (7.330-7.430); VENOUS STANDARD HCO3 27.6 MMOL/L; VENOUS TOTAL CO2 30.4 MMOL/L (24.0-28.0)
[2024-02-15 12:12] LABS: BASO % 0.4 % (0.0-1.0); EOS # 0.1 10^3/uL (0.0-0.5); EOS % 1.3 % (0.0-3.0); HEMATOCRIT 35.3 % (42.0-52.0); HEMOGLOBIN 11.7 g/dl (13.5-17.5); LYMPH # 1.2 10^3/uL (1.5-5.0); LYMPH % 12.5 % (24.0-44.0); MEAN CORPUSCULAR HEMOGLOBIN 29.8 pg (27.0-33.0); MEAN CORPUSCULAR HGB CONC 33.1 g/dl (32.0-36.5); MEAN CORPUSCULAR VOLUME 89.8 fl (80.0-96.0); MONO # 0.8 10^3/uL (0.0-0.8); MONO % 8.1 % (2.0-8.0); NEUTROPHILS # 7.4 10^3/uL (1.5-8.5); NEUTROPHILS % 77.4 % (36.0-66.0); PLATELET COUNT, AUTOMATED 295 10^3/uL (150-450); RED BLOOD COUNT 3.93 10^6/uL (4.30-6.10); WHITE BLOOD COUNT 9.6 10^3/uL (4.0-10.0)
[2024-02-15 12:38] LABS: ALBUMIN 3.3 G/DL (3.2-5.2); ALKALINE PHOSPHATASE 342 U/L (46-116); ALT/SGPT 169 U/L (7.0-40); AST/SGOT 74 U/L (<34); BILIRUBIN,DIRECT 0.2 MG/DL (<0.4); BILIRUBIN,TOTAL 0.5 MG/DL (0.3-1.2); BLOOD UREA NITROGEN 12 MG/DL (9-23); CALCIUM LEVEL 9.7 MG/DL (8.3-10.6); CARBON DIOXIDE LEVEL 29 MMOL/L (20-31); CHLORIDE LEVEL 94 MMOL/L (98-107); CREATININE FOR GFR 0.54 MG/DL (0.70-1.30); GLOMERULAR FILTRATION RATE > 60.0 (>49); GLUCOSE, FASTING 105 MG/DL (74-106); POTASSIUM SERUM 4.4 MMOL/L (3.5-5.1); SODIUM LEVEL 126 MMOL/L (136-145); TOTAL PROTEIN 7.1 G/DL (5.7-8.2)
[2024-02-15] MEDS ORDERED: ISOVUE-370 76% 100ML VIAL As Ordered ONE (13:00)
[2024-02-15 13:08] LABS: INR 1.25; PROTHROMBIN TIME 15.3 SECONDS (12.5-14.5)
[2024-02-15] MEDS ORDERED: MAGN400T2 PO (16:15)
[2024-02-15] MEDS ORDERED: MELA10CA PO (16:15)
[2024-02-15] MEDS ORDERED: MIDO5TA PO (16:15)
[2024-02-15] MEDS ORDERED: FAMO40TA3 PO (16:15)
[2024-02-15] MEDS ORDERED: MAGN400T35 PO (16:15)
[2024-02-15] MEDS ORDERED: PROP40TA62 PO (16:15)
[2024-02-15] MEDS ORDERED: MOM 30ML SUSPENSION UDC PO PRN (16:25)
[2024-02-15] MEDS ORDERED: MAALOX 30 ML SUSP *UDC PO PRN (16:25)
[2024-02-15] MEDS ORDERED: IPRATROPIUM 0.5MG/ALBUTEROL 2.5MG INH SOL UD 3ML (DUONEB) NEB PRN (16:50)
[2024-02-15] MEDS ORDERED: LORazepam 1 MG TAB PO PRN (16:50)
[2024-02-15] MEDS ORDERED: guaiFENesin DM LIQ 10ML UD PO PRN (16:55)
[2024-02-15] MEDS ORDERED: HOME MED LIST COMPLETE! XX SCH (17:40)
[2024-02-15] MEDS: SODIUM CHLORIDE 1 GM TAB PO SCH (17:42)
[2024-02-15] MEDS ORDERED: SYMBICORT 80/4.5MCG INHALER 6GM INH SCH (20:00)
[2024-02-15] MEDS: ACETAMINOPHEN TAB 650MG DOSE (2X325MG) PO PRN (20:34)
[2024-02-15 20:51] VITALS: BP 163/96; TEMP 97.1; O2SAT 93
[2024-02-15] MEDS ORDERED: METOPROLOL TART 25 MG TABLET PO SCH (21:00)
[2024-02-15] MEDS: DOCUSATE SODIUM 100MG CAPSULE PO SCH (22:39)
[2024-02-15 23:45] VITALS: BP 158/98; TEMP 97.1; O2SAT 94
[2024-02-15] MEDS: RAMELTEON 8 MG TAB (ROZEREM) PO ONE (23:51)
[2024-02-16] MEDS: ACETAMINOPHEN TAB 650MG DOSE (2X325MG) PO ONE (00:30)
[2024-02-16 03:30] VITALS: BP 160/92; TEMP 97.5; O2SAT 97
[2024-02-16 06:26] LABS: BLOOD UREA NITROGEN 14 MG/DL (9-23); CALCIUM LEVEL 9.3 MG/DL (8.3-10.6); CARBON DIOXIDE LEVEL 28 MMOL/L (20-31); CHLORIDE LEVEL 95 MMOL/L (98-107); CREATININE FOR GFR 0.48 MG/DL (0.70-1.30); GLOMERULAR FILTRATION RATE > 60.0 (>49); GLUCOSE, FASTING 97 MG/DL (74-106); POTASSIUM SERUM 4.2 MMOL/L (3.5-5.1); SODIUM LEVEL 128 MMOL/L (136-145)
[2024-02-16 07:45] VITALS: BP 170/120; TEMP 97.3; O2SAT 94
[2024-02-16] MEDS: ADVAIR HFA 230/21MCG INHALER INH SCH (08:35)
[2024-02-16 09:19] VITALS: BP 182/98
[2024-02-16] MEDS: DULoxetine 30MG CAPSULE (CYMBALTA) PO SCH (10:18)
[2024-02-16 10:28] VITALS: BP 182/98
[2024-02-16] MEDS: PROPRANOLOL 20 MG TAB PO SCH (10:28)
[2024-02-16] MEDS: buPROPion **XL** TABLET 150MG (WELLBUTRIN XL) PO SCH (10:36)
[2024-02-16] MEDS: ALPRAZolam 0.5 MG TAB PO PRN (10:36)
[2024-02-16 12:33] VITALS: BP 162/96; TEMP 97.4; O2SAT 92
[2024-02-16] MEDS: buPROPion 75 MG TAB PO SCH (13:08)
[2024-02-16] MEDS ORDERED: TRAM50TA2 PO (14:05)
[2024-02-16] MEDS: FLUBLOK(EGGFREE) TRIVAL(24-25) VACCINE PF 0.5ML SYRINGE 18YRS & OLDER IM.IMMUN ONE (15:48)
== END 2024-02-16 15:53 | disposition home or self-care (01) ==
LOC: M ED 11:08 → M ED INP 11:09 → M PCU 20:43
PROVIDERS: ADMIT Internal Medicine; ATTEND Internal Medicine
DX: J98.19 Other pulmonary collapse (principal); R04.2 Hemoptysis; E87.1 Hypo-osmolality and hyponatremia; E22.2 Syndrome of inappropriate secretion of antidiuretic hormone; I10 Essential (primary) hypertension; I27.81 Cor pulmonale (chronic); R74.01 Elevation of levels of liver transaminase levels; E78.5 Hyperlipidemia, unspecified; J44.9 Chronic obstructive pulmonary disease, unspecified; I48.20 Chronic atrial fibrillation, unspecified; Z87.891 Personal history of nicotine dependence; Z79.01 Long term (current) use of anticoagulants; Z79.899 Other long term (current) drug therapy; G47.33 Obstructive sleep apnea (adult) (pediatric); C34.90 Malignant neoplasm of unspecified part of unspecified bronchus or lung; C78.7 Secondary malignant neoplasm of liver and intrahepatic bile duct; K21.9 Gastro-esophageal reflux disease without esophagitis; K44.9 Diaphragmatic hernia without obstruction or gangrene; Z23 Encounter for immunization
CPT/HCPCS: 36415; 71045; 71275; 80048; 80076; 82803; 85025; 85610; 87040; 87486; 87581; 87633; 87798; 90673; 93005; 93041; 94640; 94760; 99285; G0008; G0378; Q9967

== ENCOUNTER → 2024-02-22 | Outpatient (CLI) | payer MEDICARE ==
[~2024-02-22] MED LIST changes: +FAMO40TA3 PO; +MAGN400T2 PO; +MAGN400T35 PO; +MELA10CA PO; +MIDO5TA PO; +PROP40TA62 PO; +TRAM50TA2 PO
[2024-02-22 10:28] LABS: ALBUMIN 3.5 G/DL (3.2-5.2); ALKALINE PHOSPHATASE 495 U/L (46-116); ALT/SGPT 324 U/L (7.0-40); AST/SGOT 160 U/L (<34); BILIRUBIN,TOTAL 0.4 MG/DL (0.3-1.2); BLOOD UREA NITROGEN 15 MG/DL (9-23); CALCIUM LEVEL 9.4 MG/DL (8.3-10.6); CARBON DIOXIDE LEVEL 29 MMOL/L (20-31); CHLORIDE LEVEL 95 MMOL/L (98-107); CREATININE FOR GFR 0.48 MG/DL (0.70-1.30); GLOMERULAR FILTRATION RATE > 60.0 (>49); GLUCOSE, FASTING 99 MG/DL (74-106); POTASSIUM SERUM 4.7 MMOL/L (3.5-5.1); SODIUM LEVEL 128 MMOL/L (136-145); TOTAL PROTEIN 7.3 G/DL (5.7-8.2)
== END ==
LOC: M LAB 09:31
PROVIDERS: ATTEND Internal Medicine Hematology & Oncology
DX: C34.90 Malignant neoplasm of unspecified part of unspecified bronchus or lung (principal)

== ENCOUNTER 2024-03-25 21:21 | Inpatient (IN) | payer MEDICARE ==
[~2024-03-25] VITALS: Ht 180.3 cm; Wt 96.0 kg
[2024-03-25 21:49] LABS: BASO % 0.4 % (0.0-1.0); EOS % 0.4 % (0.0-3.0); HEMATOCRIT 38.9 % (42.0-52.0); LYMPH # 0.2 10^3/uL (1.5-5.0); LYMPH % 2.5 % (24.0-44.0); MEAN CORPUSCULAR HEMOGLOBIN 28.3 pg (27.0-33.0); MEAN CORPUSCULAR HGB CONC 33.4 g/dl (32.0-36.5); MEAN CORPUSCULAR VOLUME 84.6 fl (80.0-96.0); MONO # 0.4 10^3/uL (0.0-0.8); MONO % 4.6 % (2.0-8.0); NEUTROPHILS % 89.2 % (36.0-66.0); PLATELET COUNT, AUTOMATED 220 10^3/uL (150-450); WHITE BLOOD COUNT 7.9 10^3/uL (4.0-10.0)
[2024-03-25 22:11] LABS: ALBUMIN 2.5 G/DL (3.2-5.2); ALKALINE PHOSPHATASE 595 U/L (46-116); ALT/SGPT 140 U/L (7.0-40); AST/SGOT 58 U/L (<34); BILIRUBIN,DIRECT 0.3 MG/DL (<0.4); BILIRUBIN,TOTAL 0.5 MG/DL (0.3-1.2); BLOOD UREA NITROGEN 18 MG/DL (9-23); CALCIUM LEVEL 8.9 MG/DL (8.3-10.6); CARBON DIOXIDE LEVEL 28 MMOL/L (20-31); CHLORIDE LEVEL 97 MMOL/L (98-107); CREATININE FOR GFR 0.66 MG/DL (0.70-1.30); GLOMERULAR FILTRATION RATE > 60.0 (>49); GLUCOSE, FASTING 109 MG/DL (74-106); POTASSIUM SERUM 3.8 MMOL/L (3.5-5.1); SODIUM LEVEL 133 MMOL/L (136-145); TOTAL PROTEIN 6.6 G/DL (5.7-8.2)
[2024-03-25] MEDS: CEFEPIME HCL 2 GM in DEXTROSE 5% (D5W) ADV/MINI-BAG 50 ML IV ONE (22:40)
[2024-03-25] MEDS: NS 1,000 ML IV ONE (22:40)
[2024-03-25] MEDS ORDERED: ISOVUE-370 76% 100ML VIAL As Ordered ONE (22:47)
[2024-03-26] VITALS (7 sets, daily range): BP systolic 101–123; BP diastolic 69–88; TEMP 95.4–98; O2SAT 95–99
[2024-03-26 01:16] LABS: CK-MB VALUE MASS < 1.0 NG/ML (<3.6)
[2024-03-26 01:23] LABS: CPK CREATINE PHOSPHOKINASE 31 U/L (46-171); MB/CK RELATIVE INDEX 3.22 (< OR =4)
[2024-03-26 01:54] LABS: ABG BASE EXCESS 3.4 (-2.0-2.0); ABG HCO3 26.7 MMOL/L (22.0-26.0); ABG O2 SATURATION 93.1 % (95.0-99.0); ABG PARTIAL PRESSURE CO2 36.2 mmHg (35.0-45.0); ABG PARTIAL PRESSURE O2 66.1 mmHg (75.0-100.0); ABG STANDARD HCO3 27.4 MMOL/L. (22.0-26.0); ABG TOTAL CO2 27.8 MMOL/L (23.0-31.0); ABG pH (ARTERIAL) 7.486 UNITS (7.350-7.450)
[2024-03-26] MEDS ORDERED: MED REC IN PROGRESS XX SCH (02:00)
[2024-03-26] MEDS ORDERED: TRAM50TA2 PO (03:06)
[2024-03-26] MEDS ORDERED: LIDO30CR18 TOP (03:06)
[2024-03-26] MEDS ORDERED: OMEP-173 PO (03:06)
[2024-03-26] MEDS ORDERED: SENN-186 PO (03:06)
[2024-03-26] MEDS ORDERED: PROC10TA5 PO (03:06)
[2024-03-26] MEDS ORDERED: ONDA-83 PO (03:06)
[2024-03-26] MEDS ORDERED: ALBU2.5V10 PO (03:06)
[2024-03-26] MEDS ORDERED: ACET325C5 PO (03:06)
[2024-03-26] MEDS ORDERED: CARV25TA PO (03:06)
[2024-03-26] MEDS ORDERED: HOME MED LIST COMPLETE! XX SCH (03:10)
[2024-03-26] MEDS ORDERED: ACETAMINOPHEN 325 MG TAB PO PRN (03:15)
[2024-03-26] MEDS: LR 1,000 ML IV SCH (04:30)
[2024-03-26] MEDS ORDERED: traMADol 50 MG TAB PO PRN (04:35)
[2024-03-26] MEDS ORDERED: ALBUTEROL SULFATE 2.5MG/0.5ML INH NEB SOLN NEB PRN (04:40)
[2024-03-26] MEDS: methylPREDNISolone 40MG 1ML VIAL IV SCH (06:00)
[2024-03-26 06:57] LABS: BLOOD UREA NITROGEN 15 MG/DL (9-23); CALCIUM LEVEL 9.1 MG/DL (8.3-10.6); CARBON DIOXIDE LEVEL 29 MMOL/L (20-31); CHLORIDE LEVEL 101 MMOL/L (98-107); CREATININE FOR GFR 0.51 MG/DL (0.70-1.30); GLOMERULAR FILTRATION RATE > 60.0 (>49); GLUCOSE, FASTING 130 MG/DL (74-106); MAGNESIUM LEVEL 1.7 MG/DL (1.8-2.4); POTASSIUM SERUM 3.3 MMOL/L (3.5-5.1); SODIUM LEVEL 135 MMOL/L (136-145)
[2024-03-26 07:03] LABS: HEMATOCRIT 37.1 % (42.0-52.0); HEMOGLOBIN 12.1 g/dl (13.5-17.5); MEAN CORPUSCULAR HEMOGLOBIN 27.9 pg (27.0-33.0); MEAN CORPUSCULAR HGB CONC 32.6 g/dl (32.0-36.5); MEAN CORPUSCULAR VOLUME 85.5 fl (80.0-96.0); PLATELET COUNT, AUTOMATED 182 10^3/uL (150-450); RED BLOOD COUNT 4.34 10^6/uL (4.30-6.10); WHITE BLOOD COUNT 7.5 10^3/uL (4.0-10.0)
[2024-03-26] MEDS: CEFEPIME HCL 2 GM in DEXTROSE 5% (D5W) ADV/MINI-BAG 50 ML IV SCH (07:24)
[2024-03-26] MEDS: IPRATROPIUM 0.5MG/ALBUTEROL 2.5MG INH SOL UD 3ML (DUONEB) NEB SCH (08:13)
[2024-03-26] MEDS: CARVedilol 12.5 MG TAB PO SCH (08:30)
[2024-03-26] MEDS: ATORVASTATIN 20 MG TAB PO SCH (08:31)
[2024-03-26] MEDS: buPROPion **XL** TABLET 150MG (WELLBUTRIN XL) PO SCH (08:31)
[2024-03-26] MEDS: OMEPRAZOLE 20MG CAP PO SCH (08:32)
[2024-03-26] MEDS: FOLIC ACID 1MG TAB PO SCH (08:32)
[2024-03-26] MEDS: allopurinoL 100 MG TAB PO SCH (08:32)
[2024-03-26] MEDS: DULoxetine 30MG CAPSULE (CYMBALTA) PO SCH (08:34)
[2024-03-26] MEDS: APIXABAN 5 MG TAB (ELIQUIS) PO SCH (08:34)
[2024-03-26] MEDS: THIAMINE 100 MG TAB PO SCH (08:34)
[2024-03-26] MEDS: POTASSIUM CHLORIDE 10MEQ SR TABLET PO ONE (09:15)
[2024-03-26] MEDS: MAGNESIUM OXIDE 400MG TAB (MAG-OX) PO SCH (09:16)
[2024-03-26] MEDS: MAG SULF 1GM/100ML (MAG RUN) 1 GM in IV 1 EA IV ONE (09:16)
[2024-03-26] MEDS: DOXYCYCLINE HYCLATE 100MG TABLET PO SCH (09:16)
[2024-03-26] MEDS: NS 1,000 ML IV ONE ×2 (10:27→12:37)
[2024-03-26 13:39] LABS: INR 1.42; PARTIAL THROMBOPLASTIN TIME 41.4 SECONDS (24.8-34.2); PROTHROMBIN TIME 16.9 SECONDS (12.5-14.5)
[2024-03-26] MEDS: NS 1,000 ML IV SCH (13:52)
[2024-03-26] MEDS: buPROPion 75 MG TAB PO SCH (15:56)
[2024-03-26 16:45] LABS: BLOOD UREA NITROGEN 17 MG/DL (9-23); CARBON DIOXIDE LEVEL 25 MMOL/L (20-31); CHLORIDE LEVEL 103 MMOL/L (98-107); GLOMERULAR FILTRATION RATE > 60.0 (>49); GLUCOSE, FASTING 267 MG/DL (74-106); POTASSIUM SERUM 3.7 MMOL/L (3.5-5.1); SODIUM LEVEL 134 MMOL/L (136-145)
[2024-03-27] VITALS (9 sets, daily range): BP systolic 122–144; BP diastolic 65–98; TEMP 97–98; O2SAT 92–99
[2024-03-27 06:42] LABS: HEMOGLOBIN 11.7 g/dl (13.5-17.5); MEAN CORPUSCULAR HEMOGLOBIN 27.9 pg (27.0-33.0); MEAN CORPUSCULAR HGB CONC 32.5 g/dl (32.0-36.5); MEAN CORPUSCULAR VOLUME 85.9 fl (80.0-96.0); PLATELET COUNT, AUTOMATED 191 10^3/uL (150-450); RED BLOOD COUNT 4.19 10^6/uL (4.30-6.10); WHITE BLOOD COUNT 6.9 10^3/uL (4.0-10.0)
[2024-03-27 07:01] LABS: ALBUMIN 2.2 G/DL (3.2-5.2); ALKALINE PHOSPHATASE 474 U/L (46-116); ALT/SGPT 100 U/L (7.0-40); AST/SGOT 32 U/L (<34); BILIRUBIN,TOTAL 0.3 MG/DL (0.3-1.2); BLOOD UREA NITROGEN 12 MG/DL (9-23); CALCIUM LEVEL 8.8 MG/DL (8.3-10.6); CARBON DIOXIDE LEVEL 28 MMOL/L (20-31); CHLORIDE LEVEL 98 MMOL/L (98-107); CREATININE FOR GFR 0.35 MG/DL (0.70-1.30); GLOMERULAR FILTRATION RATE > 60.0 (>49); GLUCOSE, FASTING 170 MG/DL (74-106); MAGNESIUM LEVEL 1.7 MG/DL (1.8-2.4); POTASSIUM SERUM 3.2 MMOL/L (3.5-5.1); SODIUM LEVEL 139 MMOL/L (136-145); TOTAL PROTEIN 6.4 G/DL (5.7-8.2)
[2024-03-27] MEDS ORDERED: PILL CUTTER 1 EACH XX ONE (09:10)
[2024-03-27] MEDS: POTASSIUM CHLORIDE 10MEQ SR TABLET PO ONE (12:06)
[2024-03-27] MEDS: MAG SULF 1GM/100ML (MAG RUN) 1 GM in IV 1 EA IV ONE (12:07)
[2024-03-27] MEDS: SENNA 8.6 MG TAB (SENOKOT) PO PRN (15:23)
[2024-03-27] MEDS: PROCHLORPERAZINE 5MG TAB PO PRN (15:23)
[2024-03-27] MEDS: methylPREDNISolone 40MG 1ML VIAL IV SCH (18:08)
[2024-03-27] MEDS: METOPROLOL TART 12.5 MG PER 1/2 TAB PO SCH (20:45)
[2024-03-27] MEDS: ALPRAZolam 0.5 MG TAB PO PRN (20:48)
[2024-03-28 04:57] VITALS: BP 129/88; TEMP 97.5; O2SAT 91
[2024-03-28 05:49] LABS: HEMATOCRIT 35.4 % (42.0-52.0); HEMOGLOBIN 11.7 g/dl (13.5-17.5); MEAN CORPUSCULAR HEMOGLOBIN 28.1 pg (27.0-33.0); MEAN CORPUSCULAR HGB CONC 33.1 g/dl (32.0-36.5); MEAN CORPUSCULAR VOLUME 84.9 fl (80.0-96.0); PLATELET COUNT, AUTOMATED 190 10^3/uL (150-450); RED BLOOD COUNT 4.17 10^6/uL (4.30-6.10); WHITE BLOOD COUNT 7.3 10^3/uL (4.0-10.0)
[2024-03-28 06:14] LABS: BLOOD UREA NITROGEN 13 MG/DL (9-23); CALCIUM LEVEL 8.3 MG/DL (8.3-10.6); CARBON DIOXIDE LEVEL 33 MMOL/L (20-31); CHLORIDE LEVEL 96 MMOL/L (98-107); CREATININE FOR GFR 0.35 MG/DL (0.70-1.30); GLOMERULAR FILTRATION RATE > 60.0 (>49); GLUCOSE, FASTING 139 MG/DL (74-106); MAGNESIUM LEVEL 1.6 MG/DL (1.8-2.4); SODIUM LEVEL 132 MMOL/L (136-145)
[2024-03-28 07:53] VITALS: BP 137/87; TEMP 97; O2SAT 93
[2024-03-28 08:59] VITALS: BP 137/87
[2024-03-28] MEDS: POTASSIUM CHLORIDE 10MEQ SR TABLET PO SCH (08:59)
[2024-03-28] MEDS: MAG SULF 1GM/100ML (MAG RUN) 1 GM in IV 1 EA IV SCH (09:00)
[2024-03-28] MEDS: KCL 10MEQ/100ML SWI (KRUN) 10 MEQ in IV 1 EA IV SCH (11:12)
[2024-03-28 12:00] VITALS: BP 135/85; TEMP 97.6; O2SAT 93
[2024-03-28 16:00] VITALS: BP 130/87; TEMP 97.8; O2SAT 93
[2024-03-28] MEDS ORDERED: PRED10TA2 PO (16:33)
[2024-03-28] MEDS ORDERED: METO1TAB87 PO (16:33)
[2024-03-28] MEDS ORDERED: LEVO1TAB40 PO (16:33)
[2024-03-29] MEDS ORDERED: predniSONE 20 MG TAB PO SCH (09:00)
== END 2024-03-28 17:45 | disposition home health service (06) | DRG 189 ==
LOC: EDBD 21:21 → M ED 21:21 → M ED INP 03-26 03:12 → M PCU 03-26 12:01
PROVIDERS: ADMIT Student in an Organized Health Care Education/Training Program; ATTEND Student in an Organized Health Care Education/Training Program
DX: J96.01 Acute respiratory failure with hypoxia (principal); J18.9 Pneumonia, unspecified organism; E22.2 Syndrome of inappropriate secretion of antidiuretic hormone; I48.20 Chronic atrial fibrillation, unspecified; C34.90 Malignant neoplasm of unspecified part of unspecified bronchus or lung; C78.7 Secondary malignant neoplasm of liver and intrahepatic bile duct; J44.0 Chronic obstructive pulmonary disease with (acute) lower respiratory infection; J44.1 Chronic obstructive pulmonary disease with (acute) exacerbation; J90 Pleural effusion, not elsewhere classified; D84.9 Immunodeficiency, unspecified; I10 Essential (primary) hypertension; E78.5 Hyperlipidemia, unspecified; K21.9 Gastro-esophageal reflux disease without esophagitis; I27.81 Cor pulmonale (chronic); K44.9 Diaphragmatic hernia without obstruction or gangrene; G47.33 Obstructive sleep apnea (adult) (pediatric); R74.01 Elevation of levels of liver transaminase levels; M10.9 Gout, unspecified; F41.9 Anxiety disorder, unspecified; Z79.01 Long term (current) use of anticoagulants; Z87.891 Personal history of nicotine dependence; Z79.899 Other long term (current) drug therapy; I95.9 Hypotension, unspecified; E83.42 Hypomagnesemia; F32.A Depression, unspecified; E87.6 Hypokalemia